=== PATIENT | female | born 1955 | race Caucasian/White ===

== ENCOUNTER → 2016-09-27 | Outpatient (CLI) | payer BC ==
[2016-09-27 14:02] LABS: Anisocytosis Slight; Basophils # (A) 0.1 k/uL (0-0.2); Basophils % (A) 1 %; CH 27.6; Eosinophils # (A) 0.2 k/uL (0-0.7); Eosinophils % (A) 1 %; HCT 41.3 % (34.0-46.0); HDW 2.53; HGB 13.2 gm/dL (11.4-16.0); Luc # (Auto) 0.15; Luc % (Auto) 1; Lymphocytes # (A) 1.5 k/uL (1.0-4.8); Lymphocytes % (A) 11 %; MCH 27.5 pg (25.0-35.0); MCHC 31.9 g/dL (31.0-37.0); MCV 86.3 fL (80.0-100.0); Mean Platelet Volume 7.6; Monocytes # (A) 0.7 k/uL (0-1.0); Monocytes % (A) 5 %; Neutrophils # (A) 10.7 k/uL (1.3-7.7); Neutrophils % (A) 81 %; RBC 4.79 m/uL (3.80-5.40); RDW 16.3 % (11.5-15.5); WBC 13.3 k/uL (3.8-10.6); WBC (Perox) 12.97
== END | disposition home or self-care (01) ==
LOC: LABPAT 13:34
PROVIDERS: ATTEND Obstetrics & Gynecology
DX: Z01.812 Encounter for preprocedural laboratory examination (principal); Z01.810 Encounter for preprocedural cardiovascular examination
CPT/HCPCS: 85025; 93005

== ENCOUNTER → 2016-10-01 | Outpatient (CLI) | payer BC ==
[2016-10-01 14:39] LABS: Potassium 3.6 mmol/L (3.5-5.1)
== END | disposition home or self-care (01) ==
LOC: LABPAT 13:59
PROVIDERS: ATTEND Anesthesiology
DX: Z01.812 Encounter for preprocedural laboratory examination (principal)
CPT/HCPCS: 36415; 80051

== ENCOUNTER 2016-10-04 10:56 | Inpatient (IN) | payer BC ==
[2016-09-28 15:19] VITALS: BMI 32.2
--- NOTE | 2016-10-02 13:26 | P.GSHP ---
History of Present Illness H&P Date: 10/04/16 Chief Complaint: Colovesical fistula Patient is seen in the office as an outpatient with complaints of lower abdominal pain. Patient had complaints over the last several months of lower abdominal pain. Left greater than right. She describes frequent constipation. She underwent a colonoscopy last by Dr. Larkin in September of last year. Patient had a small polyp in the ascending colon. There was left-sided diverticulosis as well as some luminal narrowing of the sigmoid colon. In late July the patient had a CAT scan because of ongoing discomfort. CAT scan showed extensive wall thickening with inflammatory changes involving the sigmoid colon particularly in the mid to distal sigmoid colon. There is a small focus of extraluminal air and some air within the uterus raising the suspicion of colouterine fistula. There was also some involvement of the distal small bowel raising the possibility of a fistulous process there as well. She has some mildly enlarged retroperitoneal adenopathy. Patient denies any pneumaturia. No frequent urinary tract infections. She does admit to being on antibiotics several times for diverticulitis however. She admits that she may have experienced some air passing from the vagina. No feculent drainage. The patient did not have any significant recent gynecologic evaluation. An appointment was made for her to see Dr. Baker. A clinic examination by gynecology revealed a cervical polyp. An ultrasound showed thickening of the endometrium. Patient has experience weight loss with the ongoing symptoms. Past Medical History Past Medical History: Hypertension Additional Past Medical History / Comment(s): HX OF DIVERTICULITIS WITH ABCESS PER PATIENT History of Any Multi-Drug Resistant Organisms: None Reported Past Surgical History: Breast Surgery Additional Past Surgical History / Comment(s): BREAST BIOPSY, TOOTH EXTRACTION, D&C, COLONOSCOPY Past Anesthesia/Blood Transfusion Reactions: No Reported Reaction Past Psychological History: No Psychological Hx Reported Smoking Status: Never smoker Past Alcohol Use History: Occasional Past Drug Use History: None Reported - Past Family History Mother Family Medical History: No Reported History Medications and Allergies Home Medications Medication Instructions Recorded Confirmed Type Atenolol [Tenormin] 50 mg PO DAILY 10/03/15 09/28/16 History Triamterene-Hctz 37.5-25Mg 0.5 cap PO DAILY 10/03/15 09/28/16 History [Dyazide 37.5-25 Capsule] Allergies Allergy/AdvReac Type Severity Reaction Status Date / Time adhesive tape Allergy RED SKIN Verified 09/28/16 15:09 WITH ADHESIVE TAPE Surgical - Exam Physical exam: General: Well-developed, well-nourished HEENT: Normocephalic, sclerae nonicteric Abdomen: Lower quadrant and left-sided abdominal tenderness, no rebound or guarding, no palpable mass Extremities: No edema Neuro: Alert and oriented Assessment and Plan (1) Colouterine fistula Narrative/Plan: I had a long discussion with the patient regarding the clinical findings. We have decided to proceed with sigmoid colectomy with planned re-anastomosis. Potential need for hysterectomy and small bowel resection was also discussed. Potential need for ostomy was also discussed. Dr. Vazquez has agreed to be available during this procedure and also to perform a D&C with removal of the cervical polyp at the beginning of the surgical procedure. The risks of bleeding, infection, ostomy, abscess, hernia, leak, and anesthesia-related, case and were discussed. The potential this represents an atypical malignancy was also discussed. She understands and wishes to proceed. Status: Acute
--- NOTE | 2016-10-03 17:08 | P.HPOB ---
History of Present Illness H&P Date: 10/03/16 Chief Complaint: Abnormal endometrial thickening and cervical polyp. This patient is a pleasant 61-year-old 0 para 0 female who was referred to me by Dr. Rodriguez for questionable colo-uterine fistula. Patient was being evaluated for some left lower quadrant pain and is thought to have probable diverticulitis with questionable fistula or abscess formation. There was some free air noted on her CAT scan in the uterine cavity. Examination in my office showed a 2 cm endocervical polyp. I did order a transvaginal ultrasound and it showed endometrial thickening to 1.5 cm which is abnormal in a postmenopausal patient. There is also some changes noted in the left adnexa, presumably from her diverticulitis. Patient is presenting per Dr. Rodriguez for a partial colectomy and further evaluation. At the time of this surgery, I plan to do a polypectomy and hysteroscopy D&C for evaluation of the uterine abnormality. Review of Systems Constitutional: Reports as per HPI Genitourinary: Reports as per HPI Menstruation: Reports amenorrhea Past Medical History Past Medical History: Hypertension Additional Past Medical History / Comment(s): HX OF DIVERTICULITIS WITH ABCESS PER PATIENT History of Any Multi-Drug Resistant Organisms: None Reported Past Surgical History: Breast Surgery Additional Past Surgical History / Comment(s): BREAST BIOPSY, TOOTH EXTRACTION, D&C, COLONOSCOPY Past Anesthesia/Blood Transfusion Reactions: No Reported Reaction Past Psychological History: No Psychological Hx Reported Smoking Status: Never smoker Past Alcohol Use History: Occasional Past Drug Use History: None Reported - Past Family History Mother Family Medical History: No Reported History Medications and Allergies Home Medications Medication Instructions Recorded Confirmed Type Atenolol [Tenormin] 50 mg PO DAILY 10/03/15 09/28/16 History Triamterene-Hctz 37.5-25Mg 0.5 cap PO DAILY 10/03/15 09/28/16 History [Dyazide 37.5-25 Capsule] Allergies Allergy/AdvReac Type Severity Reaction Status Date / Time adhesive tape Allergy RED SKIN Verified 09/28/16 15:09 WITH ADHESIVE TAPE Exam - OBG Physical Exam Vulva: both: normal Cervix: There is a 2 cm endocervical polyp. Uterus: normal size Results Transvaginal ultrasound as above. Pap smear was normal. Assessment and Plan (1) Endocervical polyp Narrative/Plan: This is a pleasant 61-year-old 0 para 0 female with a 2 cm endocervical polyp and endometrial thickening on ultrasound. Plan is examination under anesthesia with polypectomy, hysteroscopy, and D&C. Patient does understand the surgery and risks including risks of infection, bleeding, possible uterine perforation. Patient also understands there is a possibility that this could be neoplasm and would require further surgeries. Patient also understands there is a chance she could require a hysterectomy at the time of her surgery. All the patient's questions have been answered and a written consent is obtained. Status: Acute (2) Abnormal ultrasound of endometrium Status: Acute
[~2016-10-04 10:56] MED LIST: DEXAMETHASONE SOD PHOSPHATE 10 MG/ML 1 ML VIAL IV ONE; HEPARIN SODIUM,PORCINE 5,000 UNIT/ML 1 ML VIAL SQ ONE; HYDROmorphone 1 MG/ML 1 ML SYRINGE IVP PRN; LACTATED RINGERS 1,000 ML IV SCH; MIDAZOLAM 2 MG/2 ML VIAL IV PRN; ONDANSETRON 4 MG/2 ML VIAL IVP ONE; ceFAZolin 2 GM in SODIUM CHLORIDE 0.9% 100 ML IVPB ONE
[2016-10-04] MEDS ORDERED: MIDAZOLAM 2 MG/2 ML VIAL IVP ONE (12:11)
[2016-10-04] MEDS ORDERED: fentaNYL (PF) 50 MCG/ML 2 ML AMP IV ONE (12:12)
[2016-10-04] MEDS ORDERED: NALOXONE 0.4 MG/ML 1 ML VIAL IV PRN (12:23)
[2016-10-04] MEDS ORDERED: LIDOCAINE 1% INJ 10MG/ML (20 ML MDV) ONE (12:39)
[2016-10-04] MEDS ORDERED: GLYCOPYRROLATE 0.2 MG/ML 2 ML VIAL ONE (12:39)
[2016-10-04] MEDS ORDERED: NEOSTIGMINE 1 MG/ML 10 ML VIAL ONE (12:39)
[2016-10-04] MEDS ORDERED: MIDAZOLAM 2 MG/2 ML VIAL ONE (12:39)
[2016-10-04] MEDS ORDERED: SUCCINYLCHOLINE CHLORIDE 100 MG/5 ML SYR IV ONE (12:39)
[2016-10-04] MEDS ORDERED: fentaNYL (PF) 50 MCG/ML 2 ML AMP ONE (12:39)
[2016-10-04] MEDS ORDERED: PROPOFOL 10 MG/ML 20 ML VIAL IV ONE (12:39)
[2016-10-04] MEDS ORDERED: PHENYLEPHRINE-0.9% NACL SYG 1 MG/10 ML SYRINGE ONE (12:39)
[2016-10-04] MEDS ORDERED: VECURONIUM 10 MG VIAL IV ONE (12:39)
[2016-10-04] MEDS ORDERED: ALVIMOPAN 12 MG CAPSULE PO ONE (12:45)
[2016-10-04] MEDS: metroNIDAZOLE-NS PMX 500 MG in SALINE 1 100ML.BAG IVPB ONE ×2 (12:57→13:00)
--- NOTE | 2016-10-04 13:20 | P.OP ---
Date of Procedure: 10/04/16 Preoperative Diagnosis: Endocervical polyp and abnormal endometrial thickening. Postoperative Diagnosis: Same Procedure(s) Performed: #1: Hysteroscopy. #2: Dilation and curettage. #3: Polypectomy Anesthesia: POLA Surgeon: Javon Vazquez Estimated Blood Loss (ml): 10 Pathology: other (Endocervical polyp/growth and endometrial curettings.) Condition: stable Indications for Procedure: Please see dictated H&P for intimate details of this patient's admission. Brief summary this is a pleasant 61-year-old 0 para 0 female who is referred for evaluation of a possible colo-uterine fistula. Patient had transvaginal ultrasound showed endometrial thickening to 1.5 cm and an examination that showed a 2-3 cm endocervical growth consistent with possible polyp. Patient now presents for hysteroscopy D&C for further evaluation. Patient does understand this procedure and risks including risks of infection, bleeding, possible uterine perforation. All the patient's questions were answered written consent is obtained. Operative Findings: This patient had a 2-3 cm endocervical solid growth consistent with a polyp or submucosal fibroid. Patient also had multiple small endometrial polypoid growths. Description of Procedure: This patient is taken to the operating room where she is laid in the supine position. She subsequent undergoes general tracheal anesthesia without incident. Adequate local anesthesia was placed in dorsal lithotomy position in the [facility]. She has a vaginal perineal prep and drape. Examination under anesthesia shows a small uterus. There is a 2-3 cm solid growth protruding from the cervix. I first placed a weighted speculum posterior vagina. Then place a South catheter to straight drain. An Allis clamp was used to grab the anterior lip of the cervix. I then grabbed the large endocervical growth with a ring forceps and twisting action remove the entire growths. This is sent separately to pathology. Then dilate the cervix gently more to allow the hysteroscope into the uterine cavity. Using saline solution hysteroscopy is then performed. There are multiple large polyps in the endometrium. It is somewhat difficult visualization but there does not appear to be any communication between the colon and the uterus as visualized. The hysteroscope was then removed. Cervix is dilated more to allow a polyp forceps into the uterine cavity. Multiple passes I may remove multiple polyps. These are sent off to pathology as well a gentle but vigorous curettage of all 4 quadrants is then done for more tissue. With this done this part of the procedure is terminated. The Allis clamp and weighted speculums removed. All counts are correct 3. There are no complications. I discussed my findings with Dr. Rodriguez to proceed with his part of the procedure and if indicated will call me for any further surgery.
[2016-10-04] MEDS ORDERED: LACTATED RINGERS 1,000 ML IV ONE ×3 (13:27→15:00)
[2016-10-04] MEDS: BUPIVACAINE (PF) 0.5% 31.3 ML, HYDROmorphone 5 MG in SODIUM CHLORIDE 0.9% 216 ML EPIDURAL PRN ×2 (17:12→18:10)
[2016-10-04] MEDS ORDERED: METOCLOPRAMIDE 5 MG/ML 2 ML VIAL IVP PRN (17:14)
--- NOTE | 2016-10-04 17:23 | P.OP ---
Date of Procedure: 10/04/16 Procedure(s) Performed: PREOPERATIVE DIAGNOSIS: Diverticulitis POSTOPERATIVE DIAGNOSIS: Same PROCEDURE: Sigmoid colectomy, mobilization splenic flexure, small bowel resection, incidental appendectomy SURGEON: Jennifer EBL: See anesthesia record ANESTHESIA: General COMPLICATIONS: None OPERATIVE PROCEDURE: Patient place in the operative table in the supine position. The patient was placed under general anesthesia. The patient was then placed in lithotomy. The patient first underwent D&C with removal cervical polyp by Dr. Baker. Following that the abdomen was prepped and draped in usual sterile fashion. A vertical incision was made encompassing the umbilical hernia that was present. The fascia was divided as well. The Bookwalter retractor was utilized. The sigmoid colon was intensely inflamed. From the distal descending colon down to the distal sigmoid colon the colon was extremely inflamed. Careful blunt dissection mobilized this. The mesentery was divided using a combination of the LigaSure device and 0 silk ties. The bowel was divided proximally using a linear 75 stapler and distally just above the peritoneal reflection with a contour stapler. There was a loop of terminal ileum that was adherent to the inflamed region. As I inspect this closer a small pinhole was identified it was draining bile and a small bowel resection took place. I removed first a small portion of bowel and then another few centimeters proximal to that. There was an enlarged lymph node present in the mesentery of that loop of small bowel. A [id number] anastomosis took place by firing a linear 75 stapler along the antimesenteric border after removing the antimesenteric portion of the staple line. The bowel was then closed using a TX 60 device. The TX 60 stapler line was imbricated using 3-0 GI GI silk sutures. In the mesentery was closed using 3-0 GI silk sutures as well. The appendix was distended likely from the chronic constipation but it was decided to remove this using a linear 75 stapler. The mesentery was divided using a LigaSure device. The colon was then once again inspected. There was an area of induration proximal to our staple line by about 5 cm on additional segment of descending colon was removed. The splenic flexure was fully mobilized using a combination of the LigaSure device blunt dissection and electrocautery. The bowel then was able to reach into the pelvis without difficulty. The viability of the colon in this area was good. The staple line was removed after it was cleared of surrounding fat. The pursestring stapler was utilized. The 29 EEA was chosen. The anvil was advanced into the lumen of the bowel and the pursestring was tied down. The stapler was then inserted into the anus and brought up to the staple line. The obturator was brought out anterior to the staple line. The 2 portions of the stapler were connected to one another and subsequently tightened and fired. The bowel was clamped proximal to the anastomosis. The rigid sigmoidoscope was utilized to fill the anastomotic site nicely with air. There was saline in the pelvis at this time. No evidence of leak was seen. The abdomen was irrigated with saline. The liver, stomach, visualized colon, and small bowel appeared normal. The midline fascia was then reapproximated using 2 separate double-stranded #1 PDS sutures. The subcutaneous tissues were closed using 3-0 Vicryl sutures. A drain was placed just anterior to the fascia exiting through the skin in the right lower quadrant. This was sutured to the skin using a 3-0 nylon stitch. The skin was then closed using fabi. Sterile dressings were then applied. DISPOSITION: Stable to recovery room
[2016-10-04] MEDS: ONDANSETRON 4 MG/2 ML VIAL IVP PRN (19:21)
[2016-10-04] MEDS: D5-0.45% NACL WITH KCL 20MEQ/L 1,000 ML IV SCH (19:25)
[2016-10-04] MEDS: ALVIMOPAN 12 MG CAPSULE PO SCH (19:26)
[2016-10-04] MEDS: FAMOTIDINE 20 MG/2 ML VIAL IV SCH (19:27)
[2016-10-05] MEDS: HEPARIN SODIUM,PORCINE 5,000 UNIT/ML 1 ML VIAL SQ SCH ×3 (00:47→17:55)
[2016-10-05] MEDS: D5-0.45% NACL WITH KCL 20MEQ/L 1,000 ML IV SCH ×3 (02:20→17:53)
[2016-10-05 07:29] LABS: Basophils % (A) 0 %; CH 27.6; CHCM 31.6; Eosinophils % (A) 0 %; HCT 33.2 % (34.0-46.0); HDW 2.63; HGB 10.4 gm/dL (11.4-16.0); Hypochromasia Slight; Luc # (Auto) 0.11; Luc % (Auto) 1; Lymphocytes # (A) 0.7 k/uL (1.0-4.8); Lymphocytes % (A) 5 %; MCH 27.5 pg (25.0-35.0); MCHC 31.4 g/dL (31.0-37.0); MCV 87.4 fL (80.0-100.0); Mean Platelet Volume 6.8; Monocytes # (A) 0.7 k/uL (0-1.0); Monocytes % (A) 5 %; Neutrophils # (A) 11.7 k/uL (1.3-7.7); Neutrophils % (A) 88 %; RDW 15.7 % (11.5-15.5); WBC 13.2 k/uL (3.8-10.6); WBC (Perox) 14.17
[2016-10-05 07:57] LABS: Anion Gap 10 mmol/L; Blood Urea Nitrogen 12 mg/dL (7-17); Calcium 8.8 mg/dL (8.4-10.2); Carbon Dioxide 29 mmol/L (22-30); Chloride 99 mmol/L (98-107); Glucose 191 mg/dL (74-99); Non-African American GFR(MDRD) >60 (>60 ml/min/1.73 sqM); Sodium 138 mmol/L (137-145)
[2016-10-05] MEDS: ONDANSETRON 4 MG/2 ML VIAL IVP PRN (08:23)
[2016-10-05] MEDS: FAMOTIDINE 20 MG/2 ML VIAL IV SCH ×2 (08:24→21:04)
[2016-10-05] MEDS: ALVIMOPAN 12 MG CAPSULE PO SCH ×2 (08:24→21:04)
--- NOTE | 2016-10-05 09:11 | P.PN ---
Progress Note - Text Patient is postoperative day# 1 status post laparotomy, epidural catheter placed for postoperative analgesia, patient currently on epidural infusion of bupivacaine 0.625%/Dilaudid 20 mics/ml, at 3 ml/hours and pain control is okay. Patient complained of dizziness, spinning of the head last night and her blood pressure was low in the systolics of 90s. Epidural rate was decreased from 8 mL per hour to 3 mL per hour. Now the blood pressure is better. Patient reports nausea and stomach upset as she does already feels when she takes pills on an empty stomach. Advised to start on Protonix Titrated epidural rate from 2-10 mL an hour depending on the blood pressure and pain control. We will follow.
[2016-10-05] MEDS: PANTOPRAZOLE 40 MG/10 ML VIAL IVP SCH (11:45)
--- NOTE | 2016-10-05 16:09 | P.PN ---
Progress Note - Text The patient is day 1 post the sigmoid and small bowel resection for complicated diverticular disease. She is coming along fairly well. Some nausea she thinks may be related to the pain medication. Is taking small amounts of liquids by mouth. The patient is awake alert afebrile in no distress... Abdomen is soft the usual postoperative tenderness mostly in the epigastric area. No guarding or rebound. PVCs 13,200. Hemoglobin 10.4. Potassium is normal. Impression stable post operative course. Recommendation continue on by mouth fluids. Probably DC South catheter tomorrow. Encouraged to ambulate.
[2016-10-06] MEDS: BUPIVACAINE (PF) 0.5% 31.3 ML, HYDROmorphone 5 MG in SODIUM CHLORIDE 0.9% 216 ML EPIDURAL PRN (00:03)
[2016-10-06] MEDS: HEPARIN SODIUM,PORCINE 5,000 UNIT/ML 1 ML VIAL SQ SCH ×4 (00:03→23:46)
[2016-10-06] MEDS: D5-0.45% NACL WITH KCL 20MEQ/L 1,000 ML IV SCH ×4 (05:28→23:46)
[2016-10-06 07:22] LABS: Basophils % (A) 0 %; CH 27.4; CHCM 31.1; Eosinophils % (A) 0 %; HCT 29.7 % (34.0-46.0); HDW 2.68; HGB 9.4 gm/dL (11.4-16.0); Hypochromasia Slight; Luc % (Auto) 1; Lymphocytes # (A) 1.3 k/uL (1.0-4.8); Lymphocytes % (A) 14 %; MCH 27.9 pg (25.0-35.0); MCHC 31.7 g/dL (31.0-37.0); MCV 88.1 fL (80.0-100.0); Monocytes # (A) 0.4 k/uL (0-1.0); Monocytes % (A) 4 %; Neutrophils % (A) 81 %; RBC 3.37 m/uL (3.80-5.40); RDW 15.7 % (11.5-15.5); WBC 9.9 k/uL (3.8-10.6); WBC (Perox) 10.71
[2016-10-06 07:33] LABS: Anion Gap 10 mmol/L; Blood Urea Nitrogen 9 mg/dL (7-17); Calcium 9.1 mg/dL (8.4-10.2); Carbon Dioxide 27 mmol/L (22-30); Chloride 100 mmol/L (98-107); Glucose 105 mg/dL (74-99); Non-African American GFR(MDRD) >60 (>60 ml/min/1.73 sqM); Potassium 3.6 mmol/L (3.5-5.1); Sodium 137 mmol/L (137-145)
--- NOTE | 2016-10-06 08:01 | CONS ---
DATE OF CONSULTATION: CHIEF COMPLAINT: Consultation regarding medical management. HISTORY OF PRESENT ILLNESS: This is a 61-year-old female who was admitted to the hospital and undergone surgery. Patient's symptoms started end of May when she started having some abdominal pain. The patient had evidence suggestive of diverticulitis. She started complaining of some abdominal pains and difficulty in having bowel movements. CAT scan had suggested some suggestion of a stricture. The patient has had a colonoscopy previous about a year or so ago. In view of this, the patient was referred to Gastroenterology. The patient treated, came for diverticulitis. Subsequently CAT scan done revealed the patient had suggestion of significant diverticulitis ( ) colonic diverticular abscess. Possibility of fistula into the uterus and possible fistula in the ileum. The patient after at least about a month of antibiotics, patient's condition had stabilized and subsequently underwent surgical evaluation and surgery. The patient had no evidence to suggest uterine fistula but did have an terminal ileum fistula. So she had a partial small bowel obstruction resection and descending colon, sigmoid area resection. The patient is actually doing fairly well. She had multiple polyps in the uterus. Pathology pending. Past medical history is significant for hypertension otherwise, no history of any lung disease, liver disease, kidney disease, ulcers, TB, hepatitis. No history of rheumatic fever, myocardial infarction, CVA. PAST SURGICAL HISTORY: Significant for breast biopsy. PERSONAL HISTORY: Nonsmoker. Alcohol none. Medications at present include: 1. Tenormin 50 mg daily. 2. Maxzide 25 1/2 tablets daily. SOCIAL HISTORY: Patient is single, lives alone. FAMILY MEDICAL HISTORY: Mother at about 89 years of age. She had a history of hypertensive cardiovascular disease. The patient has a brother who recently had been sudden . A brother who had a cardiac arrest and fully revived. He has infiltrative cardiomyopathy. The patient's herself is doing otherwise patient's condition ( ). The patient has no children. REVIEW OF SYSTEMS: NEURO: Denied any headaches, dizziness. No double vision, blurred vision. No symptoms of TIA, syncope, seizures. PSYCH: No anxiety. CARDIAC: No chest pain, angina, palpitations. RESPIRATORY: No shortness of breath, cough, hemoptysis. GI: No nausea, vomiting, abdominal pain, diarrhea. : No symptoms of dysuria, hematuria, urgency, frequency. She has significant pain in late May/June. EXTREMITIES: No edema. CONSTITUTIONAL: No fever or chills. Has lost about 40 pounds of weight. PHYSICAL EXAMINATION: Pleasant female in no distress. Temperature 96.9, pulse 61, respirations 16, blood pressure 104/68, pulse ox 94% on room air. HEENT: Normocephalic. NECK: No JVD. CHEST: Clear to auscultation. CARDIAC: Normal S1, S2 with no gallops, murmurs. ABDOMEN: Tender. Bowel sounds are absent. EXTREMITIES: No edema. No tenderness. NEUROLOGIC: Awake, alert, oriented with well-coordinated. Laboratory assessment: Hemoglobin 10.4, white count 13.2, potassium, electrolytes, BUN and creatinine are normal. Glucose 191. ASSESSMENT: 1. History of hypertension. 2. Colonic diverticulitis with diverticular abscess and fistula. 3. Elevated blood sugar post surgery with no previous history of diabetes mellitus. 4. Stress hyperglycemia. PLAN: Continue present medical regimen. The patient will be covered with insulin as needed. Patient's condition was discussed with the patient. Prognosis guarded.
[2016-10-06 08:21] LABS: Glucose,Whole Blood 123 mg/dL (75-99)
[2016-10-06] MEDS: INSULIN LISPRO (humaLOG) 300 UNIT/3 ML VIAL SQ SCH ×4 (08:41→20:24)
[2016-10-06] MEDS: PANTOPRAZOLE 40 MG/10 ML VIAL IVP SCH (09:01)
[2016-10-06] MEDS: FAMOTIDINE 20 MG/2 ML VIAL IV SCH (09:01)
[2016-10-06] MEDS: ALVIMOPAN 12 MG CAPSULE PO SCH ×2 (09:01→20:24)
[2016-10-06] MEDS ORDERED: MAG HYDROX/AL HYDROX/SIMETH 30 ML CUP PO PRN (09:37)
--- NOTE | 2016-10-06 09:37 | P.PN ---
Progress Note - Text The patient is stable. Still quite nauseous. Taking in small amounts of liquids. Does not want her diet to be increase at this time. Usual amount of discomfort the especially incisional. No flatus yet. On examination patient is afebrile. Vitals are stable. Abdomen shows usual postoperative tenderness. Incision looks good. Wbc's normal. Impression stable postop the sigmoid resection. Plan see South. I'll keep him on by mouth fluids for now. Encouraged ambulation.
[2016-10-06 11:35] LABS: Glucose,Whole Blood 135 mg/dL (75-99)
--- NOTE | 2016-10-06 16:52 | PN ---
CHIEF COMPLAINT: This is a 62-year-old who was admitted to the hospital and underwent surgery. The patient has underlying history of diverticulosis with diverticular abscess and fistula to small-bowel. Post surgery, patient is doing well. She has a previous history of hypertension. REVIEW OF SYSTEMS: NEURO: Denies any headaches, dizziness. PSYCH: No anxiety. CARDIAC: No chest pain, angina, palpitation. RESPIRATORY: Denies shortness of breath, cough. GI: No nausea, vomiting. Abdominal pain is minimal. No bowel movements. She feels she has some gurgling. PHYSICAL EXAMINATION: Pleasant female in no distress. Vital reveal temperature 97, pulse 88, respirations 16, blood pressure 112/57, pulse ox 93% on 2L. HEENT: Normocephalic. NECK: No JVD. Chest is clear to auscultation. CARDIAC: Normal S1, S2 with no gallops. ABDOMEN: Tender. Bowel sounds, not appreciated. Extremities reveal no edema. No tenderness. NEUROLOGIC: Awake, alert, oriented with well-coordinated movements. LABORATORY ASSESSMENT: Hemoglobin 9.4, white count 9.9. Electrolytes are normal. Glucose 105. ASSESSMENT: 1. Anemia secondary to acute blood loss. 2. History of hypertension on medical therapy. 3. Diverticular disease, post surgery. PLAN: The patient is stable. Continue present regimen. The patient's condition discussed with the patient. Prognosis guarded.
--- NOTE | 2016-10-06 16:55 | P.PN ---
Progress Note - Text 10/06 0991 61-year-old female status post sigmoid colectomy by Dr. Rodriguez. Patient seen this evening, evaluated for pain control, VAS of 2, solution running at 3 mL an hour. Patient has no motor or sensory deficit, able to ambulate well. Plan to continue epidural infusion and DC'd the epidural in a.m..
[2016-10-06 17:06] LABS: Glucose,Whole Blood 129 mg/dL (75-99)
[2016-10-06 20:25] LABS: Glucose,Whole Blood 112 mg/dL (75-99)
[2016-10-07] MEDS: BUPIVACAINE (PF) 0.5% 31.3 ML, HYDROmorphone 5 MG in SODIUM CHLORIDE 0.9% 216 ML EPIDURAL PRN (05:52)
[2016-10-07 07:47] LABS: Anion Gap 8 mmol/L; Blood Urea Nitrogen 3 mg/dL (7-17); Calcium 8.9 mg/dL (8.4-10.2); Carbon Dioxide 29 mmol/L (22-30); Chloride 101 mmol/L (98-107); Glucose 100 mg/dL (74-99); Non-African American GFR(MDRD) >60 (>60 ml/min/1.73 sqM); Potassium 3.6 mmol/L (3.5-5.1); Sodium 138 mmol/L (137-145)
[2016-10-07 08:09] LABS: Basophils % (A) 1 %; CH 27.5; CHCM 31.7; Eosinophils # (A) 0.1 k/uL (0-0.7); Eosinophils % (A) 2 %; HDW 2.75; HGB 9.9 gm/dL (11.4-16.0); Hypochromasia Slight; Luc # (Auto) 0.09; Luc % (Auto) 1; Lymphocytes # (A) 1.1 k/uL (1.0-4.8); Lymphocytes % (A) 14 %; MCHC 36.8 g/dL (31.0-37.0); MCV 86.9 fL (80.0-100.0); Mean Platelet Volume 7.3; Monocytes # (A) 0.7 k/uL (0-1.0); Monocytes % (A) 9 %; Neutrophils # (A) 5.8 k/uL (1.3-7.7); Neutrophils % (A) 75 %; RBC 3.11 m/uL (3.80-5.40); RDW 15.7 % (11.5-15.5); WBC 7.8 k/uL (3.8-10.6); WBC (Perox) 7.63
[2016-10-07] MEDS: HEPARIN SODIUM,PORCINE 5,000 UNIT/ML 1 ML VIAL SQ SCH ×2 (08:27→15:22)
[2016-10-07] MEDS: INSULIN LISPRO (humaLOG) 300 UNIT/3 ML VIAL SQ SCH ×4 (08:27→20:51)
[2016-10-07] MEDS: ALVIMOPAN 12 MG CAPSULE PO SCH ×2 (08:27→20:46)
[2016-10-07] MEDS: PANTOPRAZOLE 40 MG/10 ML VIAL IVP SCH (08:27)
[2016-10-07] MEDS ORDERED: HYDROmorphone 1 MG/ML 1 ML SYRINGE IVP PRN (09:29)
[2016-10-07 09:46] LABS: Polychromasia Present
[2016-10-07 09:47] LABS: Large Platelets Present; Manual Review Performed; Toxic Vacuolation Present
--- NOTE | 2016-10-07 09:54 | P.PN ---
Progress Note - Text The patient remains fairly stable. She is afebrile. Vitals are good. Tolerating by mouth fluids small amounts. No flatus or bowel movement yet. She is voiding since apparently catheter was yesterday. Temperature is normal. Abdomen is soft. Incision looks fine. DOLORES drain is minimal about 25 MLS in the last 12 hours. Improving postoperative course. Epidural to be removed today. We'll advance her diet to full liquids. DC DOLORES drain tomorrow.
[2016-10-07] MEDS: HYDROcodone/APAP 7.5-325MG 1 EACH TAB PO PRN ×2 (15:19→20:47)
[2016-10-07] MEDS: D5-0.45% NACL WITH KCL 20MEQ/L 1,000 ML IV SCH ×2 (15:20→20:52)
[2016-10-07] MEDS: ONDANSETRON 4 MG/2 ML VIAL IVP PRN (20:46)
--- NOTE | 2016-10-07 20:47 | P.PN ---
Progress Note - Text 10/07 103 61-year-old female that is post sigmoid colectomy by Dr. Rodriguez. Patient seen and evaluated this morning, we'll solution running at 3 mL an hour with a resting VAS of 3. No motor or sensory deficit, patient ambulating well. Epidural DC'd nurse informed
[2016-10-07 20:52] LABS: Glucose,Whole Blood 120 mg/dL (75-99)
[2016-10-08] MEDS: HEPARIN SODIUM,PORCINE 5,000 UNIT/ML 1 ML VIAL SQ SCH ×4 (00:59→23:24)
[2016-10-08] MEDS: D5-0.45% NACL WITH KCL 20MEQ/L 1,000 ML IV SCH ×4 (00:59→21:38)
[2016-10-08] MEDS: HYDROcodone/APAP 7.5-325MG 1 EACH TAB PO PRN ×4 (04:26→21:38)
[2016-10-08] MEDS: ONDANSETRON 4 MG/2 ML VIAL IVP PRN (04:26)
[2016-10-08 07:43] LABS: Basophils % (A) 0 %; CH 27.6; CHCM 31.8; Eosinophils # (A) 0.1 k/uL (0-0.7); Eosinophils % (A) 1 %; HCT 32.6 % (34.0-46.0); HDW 2.74; HGB 10.4 gm/dL (11.4-16.0); Hypochromasia Slight; Luc # (Auto) 0.06; Luc % (Auto) 1; Lymphocytes # (A) 0.7 k/uL (1.0-4.8); Lymphocytes % (A) 10 %; MCH 27.8 pg (25.0-35.0); MCHC 31.9 g/dL (31.0-37.0); MCV 86.9 fL (80.0-100.0); Mean Platelet Volume 6.7; Monocytes # (A) 0.3 k/uL (0-1.0); Monocytes % (A) 5 %; Neutrophils # (A) 5.9 k/uL (1.3-7.7); Neutrophils % (A) 83 %; RBC 3.75 m/uL (3.80-5.40); RDW 15.6 % (11.5-15.5); WBC 7.1 k/uL (3.8-10.6); WBC (Perox) 7.59
[2016-10-08 07:52] LABS: Anion Gap 8 mmol/L; Blood Urea Nitrogen <2 mg/dL (7-17); Calcium 9.1 mg/dL (8.4-10.2); Carbon Dioxide 30 mmol/L (22-30); Chloride 101 mmol/L (98-107); Glucose 113 mg/dL (74-99); Non-African American GFR(MDRD) >60 (>60 ml/min/1.73 sqM); Potassium 3.6 mmol/L (3.5-5.1); Sodium 139 mmol/L (137-145)
[2016-10-08] MEDS: PANTOPRAZOLE 40 MG TABLET PO SCH (08:28)
[2016-10-08] MEDS: ALVIMOPAN 12 MG CAPSULE PO SCH ×2 (08:28→20:22)
[2016-10-08] MEDS: INSULIN LISPRO (humaLOG) 300 UNIT/3 ML VIAL SQ SCH ×4 (08:29→20:22)
--- NOTE | 2016-10-08 16:00 | P.PN ---
Progress Note - Text The patient progressively improved. No fever. Tolerating a full liquid diet. Passing flatus. The drain is minimal 20 mL's in 24 hours per serosanguineous. On examination the patient is awake alert afebrile. Vitals are good. Abdomen is soft. Incision looks good. An usual postoperative tenderness. Progressive improvement. Recommendation. DC the DOLORES drain. We will advance her diet.
[2016-10-08 20:23] LABS: Glucose,Whole Blood 114 mg/dL (75-99)
[2016-10-09] MEDS: HYDROcodone/APAP 7.5-325MG 1 EACH TAB PO PRN ×4 (04:31→23:09)
[2016-10-09] MEDS: D5-0.45% NACL WITH KCL 20MEQ/L 1,000 ML IV SCH ×3 (04:35→23:09)
[2016-10-09 07:11] LABS: Glucose,Whole Blood 103 mg/dL (75-99)
[2016-10-09] MEDS: INSULIN LISPRO (humaLOG) 300 UNIT/3 ML VIAL SQ SCH ×4 (08:08→20:32)
[2016-10-09] MEDS: HEPARIN SODIUM,PORCINE 5,000 UNIT/ML 1 ML VIAL SQ SCH ×3 (08:08→23:09)
[2016-10-09] MEDS: PANTOPRAZOLE 40 MG TABLET PO SCH (08:08)
--- NOTE | 2016-10-09 11:00 | P.PN ---
Progress Note - Text The patient is afebrile. The of tolerating small amounts of soft diet. Did have a bowel movement the middle of night. Some flatus. Examination she is afebrile. Vitals are stable. Abdomen is soft. Usual postoperative tenderness. Location. She is voiding well. Doing well postop. Should be able to go home in the next day or so. May shower.
[2016-10-09 12:02] LABS: Glucose,Whole Blood 115 mg/dL (75-99)
[2016-10-09] MEDS: ALVIMOPAN 12 MG CAPSULE PO SCH ×2 (12:49→20:33)
[2016-10-09 16:53] LABS: Glucose,Whole Blood 102 mg/dL (75-99)
[2016-10-09 20:34] LABS: Glucose,Whole Blood 108 mg/dL (75-99)
[2016-10-10] MEDS: HYDROcodone/APAP 7.5-325MG 1 EACH TAB PO PRN ×4 (04:09→21:37)
[2016-10-10] MEDS: ONDANSETRON 4 MG/2 ML VIAL IVP PRN (04:22)
[2016-10-10 07:26] LABS: Glucose,Whole Blood 116 mg/dL (75-99)
[2016-10-10] MEDS: INSULIN LISPRO (humaLOG) 300 UNIT/3 ML VIAL SQ SCH ×3 (08:38→17:29)
[2016-10-10] MEDS: HEPARIN SODIUM,PORCINE 5,000 UNIT/ML 1 ML VIAL SQ SCH ×3 (08:50→23:15)
[2016-10-10] MEDS: ALVIMOPAN 12 MG CAPSULE PO SCH ×2 (08:50→20:13)
[2016-10-10] MEDS: D5-0.45% NACL WITH KCL 20MEQ/L 1,000 ML IV SCH ×2 (09:17→13:36)
[2016-10-10] MEDS: PANTOPRAZOLE 40 MG TABLET PO SCH (09:17)
[2016-10-10 11:48] LABS: Glucose,Whole Blood 124 mg/dL (75-99)
--- NOTE | 2016-10-10 13:33 | P.PN ---
Subjective Principal diagnosis: Diverticulitis Patient doing well today. She has had a fairly uneventful recovery after her recent one colectomy. She is passing flatus and had small bowel months. Still with some discomfort. Appetite remains low. She is ambulating. She is afebrile. Objective - Vital Signs Vital signs: Vital Signs Temp 98 F 10/10/16 07:00 Pulse 97 10/10/16 07:00 Resp 18 10/10/16 07:00 BP 151/93 10/10/16 07:00 Pulse Ox 94 L 10/10/16 07:00 Intake & Output 10/09/16 10/10/16 10/10/16 18:59 06:59 18:59 Intake Total 240 240 Output Total 804 Balance -564 240 Weight 82.554 kg Intake: Oral 240 240 Output: Urine 800 Stool 4 Other: Voiding Method Toilet Toilet # Voids 2 1 # Bowel Movements 1 - Exam Abdomen: Soft, mild incisional tenderness, incision clean and dry - Labs CBC & Chem 7: 10/08/16 07:13 10/08/16 07:11 Labs: Abnormal Lab Results - Last 24 Hours (Table) 10/09/16 10/09/16 10/10/16 Range/Units 16:44 20:32 07:17 POC Glucose (mg/dL) 102 H 108 H 116 H (75-99) mg/dL 10/10/16 Range/Units 11:30 POC Glucose (mg/dL) 124 H (75-99) mg/dL Assessment and Plan (1) Colouterine fistula Narrative/Plan: Continue soft diet. Anticipate discharge tomorrow if the patient's appetite is improved. Status: Acute
[2016-10-10 19:41] VITALS: RESP 16
[2016-10-11] MEDS: HYDROcodone/APAP 7.5-325MG 1 EACH TAB PO PRN ×2 (04:51→13:00)
[2016-10-11 07:32] VITALS: BP 166/87; PULSE 100; TEMP 97.6
[2016-10-11] MEDS: HEPARIN SODIUM,PORCINE 5,000 UNIT/ML 1 ML VIAL SQ SCH (07:37)
[2016-10-11] MEDS: PANTOPRAZOLE 40 MG TABLET PO SCH (07:37)
[2016-10-11] MEDS: ALVIMOPAN 12 MG CAPSULE PO SCH (07:38)
--- NOTE | 2016-10-11 19:04 | P.DS ---
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 Mobilization of splenic flexure took place. This was being performed for chronic diverticulitis and suspected fistula. The patient postoperatively was initially kept nothing by mouth but gradually her diet was advanced. Her ileus improved gradually. She was given Entereg during this hospitalization. Medicine was also asked to see this patient postoperatively. The patient's bowel function gradually improved over the last several days. Today she is tolerating her diet without difficulty. She is having loose but more formed stools. No nausea or vomiting. Her incision is clean and dry with no drainage. The patient is being discharged today with plans for outpatient follow-up in 1 week. Status: Acute Plan - Discharge Summary New Discharge Prescriptions: Hydrocodone/Acetaminophen [Varna 5-325] 1 - 2 each PO Q4HR PRN #30 tab PRN Reason: pain Discharge Medication List Atenolol [Tenormin] 50 mg PO DAILY 10/03/15 [History] Triamterene-Hctz 37.5-25Mg [Maxzide 37.5-25] 0.5 tab PO DAILY 10/04/16 [History] Hydrocodone/Acetaminophen [Varna 5-325] 1 - 2 each PO Q4HR PRN #30 tab 10/10/16 [Rx] Follow up Appointment(s)/Referral(s): Ronald Rodriguez MD [Medical Doctor] - 10/17/16 3:40 pm Fahad Talavera MD [Primary Care Provider] - 1 Week (Office closed. Patient to call and schedule follow up appointment.) Activity/Diet/Wound Care/Special Instructions: [facility] [phone] Discharge Disposition: HOME WITH HOME HEALTH SERVICES
== END 2016-10-11 13:56 | disposition home health service (06) | DRG 330 ==
LOC: 2ORMAIN 10:56 → 3SUR 16:59
PROVIDERS: ADMIT Surgery; ATTEND Surgery
PROC: 0DTJ0ZZ Resection of Appendix, Open Approach (ICD-10-PCS; 2016-10-04)
PROC: 0DB80ZX Excision of Small Intestine, Open Approach, Diagnostic (ICD-10-PCS; 2016-10-04)
PROC: 0UDB8ZX Extraction of Endometrium, Via Natural or Artificial Opening Endoscopic, Diagnostic (ICD-10-PCS; 2016-10-04)
PROC: 0UBC8ZX Excision of Cervix, Via Natural or Artificial Opening Endoscopic, Diagnostic (ICD-10-PCS; 2016-10-04)
PROC: 0DBM0ZZ Excision of Descending Colon, Open Approach (ICD-10-PCS; principal; 2016-10-04 12:30)
PROC: 0DBN0ZZ Excision of Sigmoid Colon, Open Approach (ICD-10-PCS; 2016-10-04 12:30)
DX: K57.32 Diverticulitis of large intestine without perforation or abscess without bleeding (principal); N82.4 Other female intestinal-genital tract fistulae; I11.9 Hypertensive heart disease without heart failure; K56.7 Ileus, unspecified; D62 Acute posthemorrhagic anemia; N84.1 Polyp of cervix uteri; R73.9 Hyperglycemia, unspecified; K57.30 Diverticulosis of large intestine without perforation or abscess without bleeding; K59.09 Other constipation; T40.2X5A Adverse effect of other opioids, initial encounter; R85.89 Other abnormal findings in specimens from digestive organs and abdominal cavity; R59.0 Localized enlarged lymph nodes; K42.9 Umbilical hernia without obstruction or gangrene; N91.2 Amenorrhea, unspecified; R42 Dizziness and giddiness; R11.0 Nausea; R63.4 Abnormal weight loss; Z86.19 Personal history of other infectious and parasitic diseases; Z91.048 Other nonmedicinal substance allergy status; Z79.899 Other long term (current) drug therapy; Z82.49 Family history of ischemic heart disease and other diseases of the circulatory system; Z82.41 Family history of sudden cardiac death; Z86.010 Personal history of colon polyps
CPT/HCPCS: 36415; 80048; 80051; 84132; 85025; 86850; 86900; 86901; 88305; 88307; 88342; 93005

== ENCOUNTER 2017-04-03 08:02 | Day surgery (SDC) | payer BC ==
[2017-04-01 14:41] VITALS: BMI 32.5
[~2017-04-03 08:02] MED LIST changes: -DEXAMETHASONE SOD PHOSPHATE 10 MG/ML 1 ML VIAL IV ONE; -HEPARIN SODIUM,PORCINE 5,000 UNIT/ML 1 ML VIAL SQ ONE; -HYDROmorphone 1 MG/ML 1 ML SYRINGE IVP PRN; +LIDOCAINE 1% 20 ML VIAL (10MG/ML) FOR IV START INTRADERMA PRN; -MIDAZOLAM 2 MG/2 ML VIAL IV PRN; -ONDANSETRON 4 MG/2 ML VIAL IVP ONE; -ceFAZolin 2 GM in SODIUM CHLORIDE 0.9% 100 ML IVPB ONE
[2017-04-03] MEDS ORDERED: LACTATED RINGERS 1,000 ML IV ONE (08:05)
[2017-04-03 08:17] VITALS: TEMP 97.3
[2017-04-03] MEDS ORDERED: LIDOCAINE 1% INJ 10MG/ML (20 ML MDV) ONE (08:25)
[2017-04-03] MEDS ORDERED: PROPOFOL 10 MG/ML 20 ML VIAL IV ONE (08:25)
--- NOTE | 2017-04-03 08:30 | P.GSHP ---
History of Present Illness H&P Date: 04/03/17 Chief Complaint: Change in bowel habits Patient here today for colonoscopy. She has had frequent diarrhea. Some perianal discomfort and was found recently to have a colon cancer as well. His donor service right previous sigmoid colectomy for colovesical fistula. She does have a personal history of colon polyps. Past Medical History Past Medical History: Hypertension Additional Past Medical History / Comment(s): HX OF DIVERTICULITIS WITH ABCESS PER PATIENT History of Any Multi-Drug Resistant Organisms: None Reported Past Surgical History: Bowel Resection, Breast Surgery Additional Past Surgical History / Comment(s): BREAST BIOPSY, TOOTH EXTRACTION, D&C Past Anesthesia/Blood Transfusion Reactions: No Reported Reaction Smoking Status: Never smoker - Past Family History Mother Family Medical History: No Reported History Medications and Allergies Home Medications Medication Instructions Recorded Confirmed Type Atenolol [Tenormin] 50 mg PO DAILY 10/03/15 04/03/17 History Triamterene-Hctz 37.5-25Mg 0.5 tab PO Q48H 10/04/16 04/03/17 History [Maxzide 37.5-25] L.acidoph,Paracasei, B.lactis 1 each PO DAILY 04/01/17 04/01/17 History [Probiotic] Multivitamins, Thera [Multivitamin 1 tab PO DAILY 04/01/17 04/01/17 History (formulary)] Allergies Allergy/AdvReac Type Severity Reaction Status Date / Time adhesive tape Allergy RED SKIN Verified 04/03/17 08:17 WITH ADHESIVE TAPE Surgical - Exam Vital Signs Temp Pulse Resp BP Pulse Ox 97.3 F L 67 16 138/85 97 04/03/17 08:16 04/03/17 08:16 04/03/17 08:16 04/03/17 08:16 04/03/17 08:16 Physical exam: General: Well-developed, well-nourished HEENT: Normocephalic, sclerae nonicteric Abdomen: Nontender, nondistended Extremities: No edema Neuro: Alert and oriented Assessment and Plan (1) Change in bowel habits Narrative/Plan: Will proceed with colonoscopy at this time. Status: Acute
--- NOTE | 2017-04-03 08:51 | P.PCN ---
Date of Procedure: 04/03/17 Preoperative Diagnosis: Postoperative Diagnosis: Procedure(s) Performed: PREOPERATIVE DIAGNOSIS: Change in bowel habits POSTOPERATIVE DIAGNOSIS: Diverticulosis, descending colon polyp 2, anastomotic polyp PROCEDURE: Colonoscopy with biopsy and snare polypectomy ANESTHESIA: MAC SURGEON: Ronald Rodriguez M.D. SPECIMENS: Polyps ENDOSCOPIC PROCEDURE: The patient was placed on the endoscopy table in the left decubitus position. The Olympus colonoscope was inserted into the anus and passed under direct visualization to the base of the cecum. The appendiceal orifice was visualized. From that point the scope was slowly withdrawn inspecting all surfaces carefully. There were no neoplastic inflammatory or polypoid lesions throughout the cecum, ascending, or transverse colon. The patient's sigmoid colon had previously been surgically resected. In the mid descending colon a small polyp was removed and identified using the snare with cautery technique. In the distal descending colon approximately 5- 10 cm proximal to our anastomotic ring was noted to be a diverticular orifice with what appeared to represent a polyp in the diverticulum. A cold biopsy was taken of that polyp. There was no inflammation to suggest recent diverticulitis or perforation of that diverticula. The anastomotic ring was widely patent however there was a polypoid-like lesion on the ring itself which likely represented some granulation tissue. A small biopsy using the cold biopsy forceps took place there as well. The rectum appeared normal. The patient did have [id number] residual diverticulosis involving the entire colon. No definite hemorrhoidal disease or fissures were seen at this time. The patient was taken to the recovery room in stable condition per anesthesia guidelines. RECOMMENDATIONS: Await biopsy results to determine the timing next colonoscopy. Implants: Indications for Procedure: Operative Findings: Description of Procedure:
[2017-04-03 09:17] VITALS: BP 136/84; PULSE 68; RESP 18
== END 2017-04-03 09:57 | disposition home or self-care (01) ==
LOC: ORWHC2ENDO 08:02
PROVIDERS: ATTEND Surgery
DX: K57.30 Diverticulosis of large intestine without perforation or abscess without bleeding (principal); K63.89 Other specified diseases of intestine; K63.3 Ulcer of intestine; C18.9 Malignant neoplasm of colon, unspecified; Z86.010 Personal history of colon polyps; Z90.49 Acquired absence of other specified parts of digestive tract; I10 Essential (primary) hypertension; Z79.899 Other long term (current) drug therapy; Z91.09 Other allergy status, other than to drugs and biological substances
CPT/HCPCS: 88305; 45380; 45385; J2001; J2704

== ENCOUNTER 2017-04-29 15:33 | Emergency (ER) | payer BC ==
[2017-04-29 15:46] VITALS: BP 136/77; PULSE 75; RESP 16; TEMP 97.8
[2017-04-29] MEDS ORDERED: DIPH,PERTUS(ACELL)TETVAC-LF 0.5 ML VIAL IM ONE (16:38)
--- NOTE | 2017-04-29 17:02 | ED ---
Wound/Laceration HPI - General Chief Complaint: Wound/Laceration Stated Complaint: lac right rodriguez Time Seen by Provider: 04/29/17 16:19 Source: patient, RN notes reviewed, old records reviewed Mode of arrival: wheelchair Limitations: no limitations - History of Present Illness Initial Comments: This is a a pleasant 61-year-old female presents emergency Department with a laceration of her right rodriguez. Patient reports that she was stepping off of a step ladder while painting and fell and cut her right rodriguez. Denies any recent tetanus shot. Denies any pain with ambulation. She reports bleeding is well- controlled. Patient states that she has no other injury related to the fall. She states that the rodriguez was cut on the edge of the step. - Related Data Home Medications Medication Instructions Recorded Confirmed Atenolol [Tenormin] 50 mg PO DAILY 10/03/15 04/29/17 Triamterene-Hctz 37.5-25Mg 0.5 tab PO Q48H 10/04/16 04/29/17 [Maxzide 37.5-25] L.acidoph,Paracasei, B.lactis 1 each PO DAILY 04/01/17 04/29/17 [Probiotic] Multivitamins, Thera [Multivitamin 1 tab PO DAILY 04/01/17 04/29/17 (formulary)] Previous Rx's Medication Instructions Recorded Cephalexin [Keflex] 500 mg PO Q8HR #21 cap 04/29/17 Allergies Allergy/AdvReac Type Severity Reaction Status Date / Time adhesive tape Allergy RED SKIN Verified 04/29/17 15:46 WITH ADHESIVE TAPE Review of Systems ROS Statement: Those systems with pertinent positive or pertinent negative responses have been documented in the HPI. ROS Other: All systems not noted in ROS Statement are negative. Constitutional: Denies: fever, chills Eyes: Denies: eye pain ENT: Denies: ear pain, throat pain Respiratory: Denies: cough, dyspnea Cardiovascular: Denies: chest pain Endocrine: Denies: fatigue, heat or cold intolerance Gastrointestinal: Denies: abdominal pain, nausea, vomiting Genitourinary: Denies: urgency, dysuria Musculoskeletal: Denies: back pain Skin: Denies: rash Neurological: Denies: headache Psychiatric: Denies: anxiety Hematological/Lymphatic: Denies: easy bleeding Past Medical History Past Medical History: Hypertension Additional Past Medical History / Comment(s): HX OF DIVERTICULITIS WITH ABCESS PER PATIENT History of Any Multi-Drug Resistant Organisms: None Reported Past Surgical History: Breast Surgery Additional Past Surgical History / Comment(s): BREAST BIOPSY, TOOTH EXTRACTION, D&C Past Anesthesia/Blood Transfusion Reactions: No Reported Reaction Past Psychological History: No Psychological Hx Reported Smoking Status: Never smoker Past Alcohol Use History: None Reported Past Drug Use History: None Reported - Past Family History Mother Family Medical History: No Reported History General Exam - General Exam Comments Initial Comments: 61-year-old female. No distress. Limitations: no limitations General appearance: alert, in no apparent distress Head exam: Present: atraumatic, normocephalic, normal inspection Eye exam: Present: normal appearance, PERRL, EOMI. Absent: scleral icterus, conjunctival injection, periorbital swelling ENT exam: Present: normal exam, mucous membranes moist Neck exam: Present: normal inspection. Absent: tenderness, meningismus, lymphadenopathy Respiratory exam: Present: normal lung sounds bilaterally. Absent: respiratory distress, wheezes, rales, rhonchi, stridor Cardiovascular Exam: Present: regular rate, normal rhythm, normal heart sounds. Absent: systolic murmur, diastolic murmur, rubs, gallop, clicks GI/Abdominal exam: Present: soft, normal bowel sounds. Absent: distended, tenderness, guarding, rebound, rigid Extremities exam: Present: normal inspection, full ROM, normal capillary refill. Absent: tenderness, pedal edema, joint swelling, calf tenderness Right Knee exam: Present: normal inspection, full ROM Lower Leg exam: Present: full ROM, laceration (7cm laceration over anterior rodriguez. ). Absent: normal inspection, tenderness, swelling, abrasion Ankle exam: Present: normal inspection, full ROM Foot/Toe exam: Present: normal inspection, full ROM Neurovascular tendon exam: Present: no vascular compromise Gait: observed and normal Back exam: Present: normal inspection Neurological exam: Present: alert, oriented X3, CN II-XII intact Psychiatric exam: Present: normal affect, normal mood Skin exam: Present: warm, dry, intact, normal color. Absent: rash Course Vital Signs 04/29/17 15:43 Temperature 97.8 F Pulse Rate 75 Respiratory 16 Rate Blood Pressure 136/77 O2 Sat by Pulse 96 Oximetry Procedures - Laceration Laceration #1 Site: lower extremity (right lower anterior leg. ) Size (cm): 7 Description: linear Depth: simple, single layer Anesthetic Used: lidocaine 1% Anesthesia Technique: local infiltration Amount (mls): 10 Pre-repair: wound explored, irrigated extensively Type of Sutures: nylon Size of Sutures: 4-0 Number of Sutures: 11 Technique: simple, interrupted Patient Tolerated Procedure: well, no complications Medical Decision Making - Medical Decision Making 61-year-old female presents emergency department with a right rodriguez laceration after stepping off a step ladder while painting and hitting her rodriguez. Patient had an x-ray, no acute osseous abnormality. Updated on her tetanus. Laceration is presently 7 cm and was closed with 11stitches. Wound was well approximated and well irrigated. Patient advised on return parameters. Patient will be started on Keflex. Patient agrees to treatment plan and will comply, return parameters discussed. - Radiology Data Radiology results: report reviewed Right tib-fib x-ray was reviewed and negative for any acute process. Disposition Clinical Impression: Laceration of right lower leg Disposition: HOME SELF-CARE Condition: Good Instructions: Care For Your Stitches (ED), Laceration (ED) Additional Instructions: Please return to the emergency room in 10-12 days to have sutures removed. Please leave wound covered for the first 24-48 hours and then leave open to air after that time. Please use clean soap and water to clean the suture area to prevent scabbing over the top of your sutures. Please watch for any signs of infection which may include but not limited to increased pain, swelling, redness , fever or chills. Please return to the emergency room if any signs of infection do occur. Please return to the emergency room for any other concerns or complications. Prescriptions: Cephalexin [Keflex] 500 mg PO Q8HR #21 cap Referrals: Fahad Talavera MD [Primary Care Provider] - 1-2 days Time of Disposition: 17:02
--- NOTE | 2017-04-29 17:05 | XR ---
EXAMINATION TYPE: XR tibia fibula RT DATE OF EXAM: 04/29/2017 COMPARISON: NONE HISTORY: Laceration TECHNIQUE: 4 views FINDINGS: I see no fracture nor dislocation. Tibia and fibula appear intact. IMPRESSION: Negative right tibia and fibula exam.
== END 2017-04-29 18:02 | disposition home or self-care (01) ==
LOC: EC 15:33
DX: S81.811A Laceration without foreign body, right lower leg, initial encounter (principal); Z79.899 Other long term (current) drug therapy; Z91.048 Other nonmedicinal substance allergy status; W11.XXXA Fall on and from ladder, initial encounter; Y93.89 Activity, other specified
CPT/HCPCS: 12002; 90471; 90715; 99283

== ENCOUNTER → 2017-08-09 | Outpatient (CLI) | payer BC ==
--- NOTE | 2017-08-15 14:31 | MM ---
Reason for exam: screening (asymptomatic). Last mammogram was performed 14 years and 6 months ago. History: Patient is nulliparous. Family history of breast cancer. Excisional biopsy of the right breast. Physical Findings: A clinical breast exam by your physician is recommended on an annual basis and results should be correlated with mammographic findings. MG Screening Mammo w CAD Bilateral CC and MLO view(s) were taken. No prior studies available for comparison. The breast tissue is heterogeneously dense. This may lower the sensitivity of mammography. Finding: There are segmental fine calcifications in the upper outer quadrant of the right breast, 7cm from the nipple. ASSESSMENT: Incomplete: need additional imaging evaluation, BI-RAD 0 RECOMMENDATION: Special view mammogram of the right breast. [facility] will attempt to contact patient to return for supplemental views.
== END | disposition home or self-care (01) ==
LOC: RADMAMWWP 09:12
PROVIDERS: ATTEND Obstetrics & Gynecology
DX: Z12.31 Encounter for screening mammogram for malignant neoplasm of breast (principal)

== ENCOUNTER → 2017-08-21 | Outpatient (CLI) | payer BC ==
--- NOTE | 2017-08-21 10:07 | MM ---
Reason for exam: additional evaluation requested from abnormal screening. Last mammogram was performed less than 1 month ago. History: Patient is postmenopausal and is nulliparous. Family history of breast cancer in grandmother at age 36. Excisional biopsy of the right breast. Physical Findings: Nurse did not find any significant physical abnormalities on exam. MG Work Up Mamm w CAD RT CC with magnification, ML with magnification, and ML view(s) were taken of the right breast. Prior study comparison: August 09, 2017, bilateral MG screening mammo w CAD. Finding: There are intermediate concern, suspicious heterogeneous, grouped/clustered calcifications in the upper outer quadrant, middle position of the right breast. These results were verbally communicated with the patient and result sheet given to the patient on 08/21/17. ASSESSMENT: Suspicious, BI-RAD 4 RECOMMENDATION: Stereotactic core biopsy of the right breast. Called Dr. Vazquez with mammographic findings and has scheduled an appointment for the patient for 09/25/17 at 4:[address] Rodriguez. Biopsy scheduled for 08/28/17 at 12:20. PRELIMINARY REPORT CALLED AND FAXED TO DR. RODRIGUEZ ON 08/21/17.
== END | disposition home or self-care (01) ==
LOC: RADMAMWWP 08:27
PROVIDERS: ATTEND Obstetrics & Gynecology
DX: R92.8 Other abnormal and inconclusive findings on diagnostic imaging of breast (principal)
CPT/HCPCS: 77065

== ENCOUNTER → 2017-08-28 | Day surgery (SDC) | payer BC ==
[2017-08-28 11:35] VITALS: BP 132/66; PULSE 66; RESP 16; TEMP 97.8; BMI 33.6
--- NOTE | 2017-08-28 13:14 | MM ---
Stereotactic Mammotome core biopsy right breast. HISTORY: Right breast microcalcifications. The microcalcifications in question within the right breast were targeted by the undersigned. Procedure was performed by the undersigned. Informed consent was obtained and all of the patients questions were answered. The standard sterile technique was utilized and appropriate local anesthesia was obtained with 1% lidocaine. Mammotome probe was advanced and multiple core samples were obtained and sent to pathology for interpretation. Microclip marker was deployed at the site of biopsy. Post procedural mammogram demonstrates appropriate deployment of radiopaque clip marker. The patient tolerated the procedure well and left the department in stable condition. Pathology results are pending. IMPRESSION: Successful stereotactic core biopsy right breast with pathology results pending. Pathology Results: Benign BREAST, RIGHT, STEREOTACTIC CORE BIOPSY: FIBROCYSTIC CHANGE (STROMAL FIBROSIS, CYST FORMATION, ADENOSIS, DUCT HYPERPLASIA AND CALCIFICATIONS). Recommendation Follow up mammogram of the right breast in 6 months. ENRIQUE
== END ==
LOC: RADMAMWWP 11:15
PROVIDERS: ATTEND Surgery
DX: N60.31 Fibrosclerosis of right breast (principal); N60.01 Solitary cyst of right breast; N60.21 Fibroadenosis of right breast; N60.91 Unspecified benign mammary dysplasia of right breast; R92.1 Mammographic calcification found on diagnostic imaging of breast; Z91.09 Other allergy status, other than to drugs and biological substances
CPT/HCPCS: 88305; 19081; A4648; J2001

== ENCOUNTER → 2018-02-27 | Outpatient (CLI) | payer BC ==
--- NOTE | 2018-02-27 14:47 | MM ---
Reason for exam: follow-up at short interval from prior study. Last mammogram was performed 6 months ago. History: Patient is postmenopausal and is nulliparous. Family history of breast cancer in grandmother at age 36. Benign MG stereo VAD BX RT of the right breast, August 28, 2017. Excisional biopsy of the right breast. Physical Findings: Nurse did not find any significant physical abnormalities on exam. MG Diagnostic Mammo RT w CAD CC and MLO view(s) were taken of the right breast. Prior study comparison: August 21, 2017, right breast MG work up mamm w CAD RT. August 09, 2017, bilateral MG screening mammo w CAD. The breast tissue is heterogeneously dense. This may lower the sensitivity of mammography. Finding: There are typically benign regional calcifications in the right breast. Previous mammotome biopsy in the right breast. Benign right axillary lymph nodes. These results were verbally communicated with the patient and result sheet given to the patient on 02/27/18. ASSESSMENT: Benign, BI-RAD 2 RECOMMENDATION: Return to routine screening mammogram schedule for both breasts. Back on schedule.
== END | disposition home or self-care (01) ==
LOC: RADMAMWWP 08:10
PROVIDERS: ATTEND Surgery
DX: R92.8 Other abnormal and inconclusive findings on diagnostic imaging of breast (principal)
CPT/HCPCS: 77065

== ENCOUNTER → 2018-08-21 | Outpatient (CLI) | payer BC ==
--- NOTE | 2018-08-28 14:22 | MM ---
Reason for exam: follow-up at short interval from prior study. Last mammogram was performed 6 months ago. History: Patient is postmenopausal and is nulliparous. Family history of breast cancer in grandmother at age 36. Benign MG stereo VAD BX RT of the right breast, August 28, 2017. Excisional biopsy of the right breast. MG Screening Mammo w CAD Bilateral CC and MLO view(s) were taken. Prior study comparison: February 27, 2018, right breast MG diagnostic mammo RT w CAD. August 21, 2017, right breast MG work up mamm w CAD RT. Focal asymmetry left breast 9 o'clock position with a couple of calcification. Additional work up is recommended. ASSESSMENT: Incomplete: need additional imaging evaluation, BI-RAD 0 RECOMMENDATION: Special view mammogram of the left breast.
== END ==
LOC: RADMAMWWP 08:34
PROVIDERS: ATTEND Internal Medicine
DX: Z12.31 Encounter for screening mammogram for malignant neoplasm of breast (principal)
CPT/HCPCS: 77067

== ENCOUNTER → 2018-09-04 | Outpatient (CLI) | payer BC ==
--- NOTE | 2018-09-08 18:39 | MM ---
Reason for exam: additional evaluation requested from abnormal screening. Last mammogram was performed less than 1 month ago. History: Patient is postmenopausal and is nulliparous. Family history of breast cancer in grandmother at age 36. Benign MG stereo VAD BX RT of the right breast, August 28, 2017. Excisional biopsy of the right breast. Took hormonal contraceptives for 10 years beginning at age 19. Physical Findings: Nurse did not find any significant physical abnormalities on exam. MG 3D Work Up W/Cad LT Spot compression CC with magnification, MLO, ML with magnification, and ML view(s) were taken of the left breast. Prior study comparison: August 21, 2018, bilateral MG screening mammo w CAD. February 27, 2018, right breast MG diagnostic mammo RT w CAD. The breast tissue is heterogeneously dense. This may lower the sensitivity of mammography. There are benign-appearing round scattered left breast calcifications. The upper inner quadrant left middle posterior depth focal asymmetry appears improved from 2017, however on spot cc there is a persistent 4mm mass in the inner quadrant corresponding to an asymmetry of the upper breast 10 cm from the nipple.. ASSESSMENT: Incomplete: need additional imaging evaluation, BI-RAD 0 RECOMMENDATION: Ultrasound of the left breast.
--- NOTE | 2018-09-08 18:42 | USB ---
History: Patient is postmenopausal and is nulliparous. Family history of breast cancer in grandmother at age 36. Benign MG stereo VAD BX RT of the right breast, August 28, 2017. Excisional biopsy of the right breast. Took hormonal contraceptives for 10 years beginning at age 19. US Breast Workup Limited LT Left limited breast ultrasound including focal area of concern, retroareolar and axilla demonstrates No suspicious sonographic finding. Multifocal dense tissue likely relation the the mammographic focal asymmetry. These results were verbally communicated with the patient and result sheet given to the patient on 09/04/18. ASSESSMENT: Probably benign, BI-RAD 3 RECOMMENDATION: Follow-up diagnostic mammogram of the left breast in 6 months.
== END | disposition home or self-care (01) ==
LOC: RADMAMWWP 08:07
PROVIDERS: ATTEND Internal Medicine
DX: R92.8 Other abnormal and inconclusive findings on diagnostic imaging of breast (principal)
CPT/HCPCS: 77061; 77065

== ENCOUNTER 2020-06-23 11:58 | Inpatient (IN) | payer MEDICARE ==
[~2020-06-23 11:58] MED LIST changes: +HYDROmorphone 0.5 MG/0.5 ML SYRINGE IVP ONE; -LACTATED RINGERS 1,000 ML IV SCH; -LIDOCAINE 1% 20 ML VIAL (10MG/ML) FOR IV START INTRADERMA PRN
[2020-06-23] MEDS ORDERED: SODIUM CHLORIDE 0.9% 500 ML 500 ML IV ONE ×2 (12:33→13:24)
[2020-06-23 13:00] LABS: Basophils % (A) 0 %; Eosinophils # (A) 0.1 k/uL (0-0.7); Eosinophils % (A) 1 %; HCT 45.2 % (34.0-46.0); HGB 14.8 gm/dL (11.4-16.0); Lymphocytes # (A) 1.1 k/uL (1.0-4.8); Lymphocytes % (A) 7 %; MCH 29.5 pg (25.0-35.0); MCHC 32.9 g/dL (31.0-37.0); MCV 89.8 fL (80.0-100.0); Mean Platelet Volume 7.7; Monocytes # (A) 0.7 k/uL (0-1.0); Monocytes % (A) 5 %; Neutrophils # (A) 13.4 k/uL (1.3-7.7); Neutrophils % (A) 87 %; Platelet Count 322 k/uL (150-450); RBC 5.03 m/uL (3.80-5.40); RDW 13.7 % (11.5-15.5); WBC 15.4 k/uL (3.8-10.6)
[2020-06-23 13:15] LABS: Appearance,Urine Cloudy (Clear); Bacteria,Urine Occasional /hpf; Bilirubin,Urine 1+ (Negative); Blood,Urine Moderate (Negative); Color,Urine Yellow; Glucose,Urine (UA) Negative (Negative); Ketones,Urine Negative (Negative); Leukocyte Esterase,Urine Moderate (Negative); Mucus,Urine Moderate /hpf; Nitrite,Urine Negative (Negative); Protein,Urine 1+ (Negative); RBC,Urine 6 /hpf (0-5); Specific Gravity,Urine 1.028 (1.001-1.035); Squamous Epithelial Cell,Urine 7 /hpf (0-4); WBC,Urine 22 /hpf (0-5)
[2020-06-23 13:19] LABS: ALT 39 U/L (4-34); AST 58 U/L (14-36); African American GFR (CKD) >90 (>60 ml/min/1.73 sqM); Albumin 4.9 g/dL (3.5-5.0); Alkaline Phosphatase 101 U/L (38-126); Anion Gap 12 mmol/L; Blood Urea Nitrogen 16 mg/dL (7-17); Calcium 11.4 mg/dL (8.4-10.2); Carbon Dioxide 25 mmol/L (22-30); Chloride 98 mmol/L (98-107); Glucose 140 mg/dL (74-99); Lipase 38 U/L (23-300); Non-African American GFR(CKD) >90 (>60 ml/min/1.73 sqM); Sodium 135 mmol/L (137-145); Total Bilirubin 1.9 mg/dL (0.2-1.3); Total Protein 8.7 g/dL (6.3-8.2)
[2020-06-23 13:21] LABS: Potassium 4.2 mmol/L (3.5-5.1)
[2020-06-23] MEDS ORDERED: PIPERACILLIN-TAZOBACTAM 3.375 GM in SODIUM CHLORIDE 0.9% 100 ML IVPB STA (13:43)
--- NOTE | 2020-06-23 13:45 | ED ---
General Adult HPI - General Chief complaint: Abdominal Pain Stated complaint: diverticulitis Time Seen by Provider: 06/23/20 12:15 Source: patient, RN notes reviewed, old records reviewed Mode of arrival: ambulatory Limitations: no limitations - History of Present Illness Initial comments: 64-year-old female patient to ED for evaluation of abdominal pain. Patient was sent for the last 2 days she has been having denies abdominal discomfort. Reports some nausea without emesis. Reports that the pain is worse in her periumbilical region. Patient does report a history of a bowel resection about 4 years ago due to diverticulitis. Dr. Rodriguez is her surgeon. Denies any other complaints. Systemic: Pt denies fatigue, fever/chills, rash. Pt denies weakness, night sweats, weight loss. Neuro: Pt denies headache, visual disturbances, syncope or pre-syncope. HEENT: Pt denies ocular discharge or irritation, otalgia, rhinorrhea, pharyn gitis or notable lymphadenopathy. Cardiopulmonary: Pt denies chest pain, SOB, heart palpitations, dyspnea on exertion. Abdominal/GI: Pt denies n/v/d. : Pt denies dysuria, burning w/ urination, frequency/urgency. Denies new onset urinary or bowel incontinence. MSK: Pt denies myalgia, loss of strength or function in extremities. Neuro: Pt denies new onset weakness, paresthesias. - Related Data Home Medications Medication Instructions Recorded Confirmed atenoloL [Tenormin] 50 mg PO DAILY 10/03/15 06/23/20 Triamterene-Hctz 37.5-25Mg 0.5 tab PO Q48H 10/04/16 06/23/20 [Maxzide 37.5-25] Multivitamins, Thera [Multivitamin 1 tab PO DAILY 04/01/17 06/23/20 (formulary)] Vitamin B Complex 1 each PO DAILY 08/22/17 06/23/20 Biotin 5 mg PO DAILY 06/23/20 06/23/20 Allergies Allergy/AdvReac Type Severity Reaction Status Date / Time adhesive tape Allergy RED SKIN Verified 06/23/20 13:59 WITH ADHESIVE TAPE Latex, Natural Rubber Allergy Unknown Verified 06/23/20 13:59 Review of Systems ROS Statement: Those systems with pertinent positive or pertinent negative responses have been documented in the HPI. ROS Other: All systems not noted in ROS Statement are negative. Past Medical History Past Medical History: Hypertension Additional Past Medical History / Comment(s): HX OF DIVERTICULITIS WITH ABCESS PER PATIENT History of Any Multi-Drug Resistant Organisms: None Reported Past Surgical History: Bowel Resection, Breast Surgery Additional Past Surgical History / Comment(s): BREAST BIOPSY, TOOTH EXTRACTION, D&C Past Anesthesia/Blood Transfusion Reactions: No Reported Reaction Past Psychological History: No Psychological Hx Reported Smoking Status: Never smoker Past Alcohol Use History: Occasional Past Drug Use History: None Reported - Past Family History Mother Family Medical History: No Reported History General Exam - General Exam Comments Initial Comments: Constitutional: NAD, AOX3, Pt has pleasant affect. HEENT: NC/AT, trachea midline, neck supple, no lymphadenopathy. Posterior pharynx non erythematous, without exudates. External ears appear normal, without discharge. Mucous membranes moist. Eyes PERRLA, EOM intact. There is no scleral icterus. No pallor noted. Cardiopulmonary: RRR, no murmurs, rubs or gallops, no JVD noted. Lungs CTAB in anterior and posterior calix. No peripheral edema. Abdominal exam: Abdomen soft and non-distended. Abdomen mildly tender to palpation in periumbilical region. There is an anterior abdominal hernia which is soft and partially reducible. Bowel sounds active in LLQ. No hepatosplenomegaly. Neuro: CN II-XII grossly intact. No nuchal rigidity. No raccon eyes, no bateman sign, no hemotympanum. No cervical spinal tenderness. MSK: No posterior calf tenderness bilaterally, homans sign negative bilaterally. Posterior tibialis and radial pulse +2 bilaterally. Sensation intact in upper and lower extremities. Full active ROM in upper and lower extremities, 5/5 stregnth. Limitations: no limitations Course Vital Signs 06/23/20 06/23/20 12:01 17:52 Temperature 98.4 F Pulse Rate 107 H 80 Respiratory 18 18 Rate Blood Pressure 155/82 125/81 O2 Sat by Pulse 95 96 Oximetry Medical Decision Making - Medical Decision Making 64-year-old female patient ED for abdominal pain. Pt VSS, afebrile. Patient does have a hernia which is partially reducible and soft. CT doesn't display an abdominal hernia with some fat stranding around it. Mild leukocytosis. Lactic acid is mildly elevated. Case was discussed and patient was seen by Teressa who contacted patients surgeon Dr. Thomas. Dr. Thomas was in surgery so Dr. Guillen was paged, she recommended that Dr. Thomas manage patient. At shift change Dr. Gannon endorsed patient to Dr. Molina. Patients discomfort minimal, patient had multiple bowel movements. Dr. Thomas evaluated patient and recommended surgery tomorrow. - Lab Data Result diagrams: 06/23/20 12:37 06/23/20 12:37 Lab Results 06/23/20 06/23/20 06/23/20 Range/Units 12:37 12:37 12:37 WBC 15.4 H (3.8-10.6) k/uL RBC 5.03 (3.80-5.40) m/uL Hgb 14.8 (11.4-16.0) gm/dL Hct 45.2 (34.0-46.0) % MCV 89.8 (80.0-100.0) fL MCH 29.5 (25.0-35.0) pg MCHC 32.9 (31.0-37.0) g/dL RDW 13.7 (11.5-15.5) % Plt Count 322 (150-450) k/uL Neutrophils % 87 % Lymphocytes % 7 % Monocytes % 5 % Eosinophils % 1 % Basophils % 0 % Neutrophils # 13.4 H (1.3-7.7) k/uL Lymphocytes # 1.1 (1.0-4.8) k/uL Monocytes # 0.7 (0-1.0) k/uL Eosinophils # 0.1 (0-0.7) k/uL Basophils # 0.0 (0-0.2) k/uL Sodium 135 L (137-145) mmol/L Potassium 4.2 (3.5-5.1) mmol/L Chloride 98 (98-107) mmol/L Carbon Dioxide 25 (22-30) mmol/L Anion Gap 12 mmol/L BUN 16 (7-17) mg/dL Creatinine 0.68 (0.52-1.04) mg/dL Est GFR (CKD-EPI)AfAm >90 (>60 ml/min/1.73 sqM) Est GFR (CKD-EPI)NonAf >90 (>60 ml/min/1.73 sqM) Glucose 140 H (74-99) mg/dL Lactic Ac Sepsis Rflx Plasma Lactic Acid Satya (0.7-2.0) mmol/L Calcium 11.4 H (8.4-10.2) mg/dL Total Bilirubin 1.9 H (0.2-1.3) mg/dL AST 58 H (14-36) U/L ALT 39 H (4-34) U/L Alkaline Phosphatase 101 (38-126) U/L Troponin I (0.000-0.034) ng/mL Total Protein 8.7 H (6.3-8.2) g/dL Albumin 4.9 (3.5-5.0) g/dL Lipase 38 (23-300) U/L Urine Color Yellow Urine Appearance Cloudy H (Clear) Urine pH 6.0 (5.0-8.0) Ur Specific Hutchinson 1.028 (1.001-1.035) Urine Protein 1+ H (Negative) Urine Glucose (UA) Negative (Negative) Urine Ketones Negative (Negative) Urine Blood Moderate H (Negative) Urine Nitrite Negative (Negative) Urine Bilirubin 1+ H (Negative) Urine Urobilinogen 2.0 (<2.0) mg/dL Ur Leukocyte Esterase Moderate H (Negative) Urine RBC 6 H (0-5) /hpf Urine WBC 22 H (0-5) /hpf Ur Squamous Epith Cells 7 H (0-4) /hpf Urine Bacteria Occasional H (None) /hpf Urine Mucus Moderate H (None) /hpf 06/23/20 06/23/20 06/23/20 Range/Units 12:37 12:37 13:22 WBC (3.8-10.6) k/uL RBC (3.80-5.40) m/uL Hgb (11.4-16.0) gm/dL Hct (34.0-46.0) % MCV (80.0-100.0) fL MCH (25.0-35.0) pg MCHC (31.0-37.0) g/dL RDW (11.5-15.5) % Plt Count (150-450) k/uL Neutrophils % % Lymphocytes % % Monocytes % % Eosinophils % % Basophils % % Neutrophils # (1.3-7.7) k/uL Lymphocytes # (1.0-4.8) k/uL Monocytes # (0-1.0) k/uL Eosinophils # (0-0.7) k/uL Basophils # (0-0.2) k/uL Sodium (137-145) mmol/L Potassium (3.5-5.1) mmol/L Chloride (98-107) mmol/L Carbon Dioxide (22-30) mmol/L Anion Gap mmol/L BUN (7-17) mg/dL Creatinine (0.52-1.04) mg/dL Est GFR (CKD-EPI)AfAm (>60 ml/min/1.73 sqM) Est GFR (CKD-EPI)NonAf (>60 ml/min/1.73 sqM) Glucose (74-99) mg/dL Lactic Ac Sepsis Rflx Y Plasma Lactic Acid Satya 2.7 H* (0.7-2.0) mmol/L Calcium (8.4-10.2) mg/dL Total Bilirubin (0.2-1.3) mg/dL AST (14-36) U/L ALT (4-34) U/L Alkaline Phosphatase (38-126) U/L Troponin I <0.012 (0.000-0.034) ng/mL Total Protein (6.3-8.2) g/dL Albumin (3.5-5.0) g/dL Lipase (23-300) U/L Urine Color Urine Appearance (Clear) Urine pH (5.0-8.0) Ur Specific Hutchinson (1.001-1.035) Urine Protein (Negative) Urine Glucose (UA) (Negative) Urine Ketones (Negative) Urine Blood (Negative) Urine Nitrite (Negative) Urine Bilirubin (Negative) Urine Urobilinogen (<2.0) mg/dL Ur Leukocyte Esterase (Negative) Urine RBC (0-5) /hpf Urine WBC (0-5) /hpf Ur Squamous Epith Cells (0-4) /hpf Urine Bacteria (None) /hpf Urine Mucus (None) /hpf 06/23/20 Range/Units 16:00 WBC (3.8-10.6) k/uL RBC (3.80-5.40) m/uL Hgb (11.4-16.0) gm/dL Hct (34.0-46.0) % MCV (80.0-100.0) fL MCH (25.0-35.0) pg MCHC (31.0-37.0) g/dL RDW (11.5-15.5) % Plt Count (150-450) k/uL Neutrophils % % Lymphocytes % % Monocytes % % Eosinophils % % Basophils % % Neutrophils # (1.3-7.7) k/uL Lymphocytes # (1.0-4.8) k/uL Monocytes # (0-1.0) k/uL Eosinophils # (0-0.7) k/uL Basophils # (0-0.2) k/uL Sodium (137-145) mmol/L Potassium (3.5-5.1) mmol/L Chloride (98-107) mmol/L Carbon Dioxide (22-30) mmol/L Anion Gap mmol/L BUN (7-17) mg/dL Creatinine (0.52-1.04) mg/dL Est GFR (CKD-EPI)AfAm (>60 ml/min/1.73 sqM) Est GFR (CKD-EPI)NonAf (>60 ml/min/1.73 sqM) Glucose (74-99) mg/dL Lactic Ac Sepsis Rflx Plasma Lactic Acid Satya 1.8 (0.7-2.0) mmol/L Calcium (8.4-10.2) mg/dL Total Bilirubin (0.2-1.3) mg/dL AST (14-36) U/L ALT (4-34) U/L Alkaline Phosphatase (38-126) U/L Troponin I (0.000-0.034) ng/mL Total Protein (6.3-8.2) g/dL Albumin (3.5-5.0) g/dL Lipase (23-300) U/L Urine Color Urine Appearance (Clear) Urine pH (5.0-8.0) Ur Specific Hutchinson (1.001-1.035) Urine Protein (Negative) Urine Glucose (UA) (Negative) Urine Ketones (Negative) Urine Blood (Negative) Urine Nitrite (Negative) Urine Bilirubin (Negative) Urine Urobilinogen (<2.0) mg/dL Ur Leukocyte Esterase (Negative) Urine RBC (0-5) /hpf Urine WBC (0-5) /hpf Ur Squamous Epith Cells (0-4) /hpf Urine Bacteria (None) /hpf Urine Mucus (None) /hpf Disposition Clinical Impression: Abdominal hernia Disposition: ADMITTED IP TO THIS HOSP Condition: Serious Is patient prescribed a controlled substance at d/c from ED?: No
--- NOTE | 2020-06-23 13:49 | CT ---
EXAMINATION TYPE: CT abdomen pelvis wo con DATE OF EXAM: 06/23/2020 COMPARISON: 08/17/2016 HISTORY: LLQ pain with constipation. CT DLP: 1134.4 mGycm Automated exposure control for dose reduction was used. TECHNIQUE: Helical acquisition of images was performed from the lung bases through the pelvis. FINDINGS: LUNG BASES: Subsegmental linear changes at the lung bases LIVER/GB: Liver is enlarged. Reduced attenuation liver suggestive of hepatomegaly. Small gallstone no joshua.. PANCREAS: No significant abnormality is seen. SPLEEN: No significant abnormality is seen. ADRENALS: Thickening of the left adrenal gland. KIDNEYS: No significant abnormality is seen. URINARY BLADDER: No significant abnormality is seen. ADENOPATHY: None visualized. OSSEOUS STRUCTURES: Hypertrophic and degenerative change of the spine. BOWEL: There is a large anterior abdominal wall hernia containing peritoneal fat as well as a bowel loop. Small amount of fluid within the hernia sac is seen and there is mild inflammatory change of th e fat. Mild amount of inflammatory changes seen anteriorly within the mesentery. This likely is relat ed to hernia. Obstructive or partial obstructive changes with incarcerated or strangulated hernia not excluded. There is changes of diverticulosis. Postsurgical changes in the pelvis. No free fluid. No free air. OTHER: Aorta of normal caliber. There is a small hiatal hernia. IMPRESSION: LARGE ANTERIOR ABDOMINAL WALL HERNIA CONTAINING PERITONEAL FAT AND BOWEL LOOPS CORRELATE FOR PARTIAL OBSTRUCTIVE HERNIA. THERE IS INFLAMMATORY CHANGE WITHIN THE ANTERIOR MESENTERY AND WITHIN THE HERNIA SAC THEREFORE DEGREE OF INCARCERATION OR STRANGULATION NOT EXCLUDED. REPORT DISCUSSED WITH [facility]
[2020-06-23] MEDS ORDERED: ACETAMINOPHEN TAB 325 MG TAB PO STA (17:21)
[2020-06-23] MEDS ORDERED: HYDROmorphone 0.5 MG/0.5 ML SYRINGE IVP PRN (17:53)
[2020-06-23] MEDS ORDERED: NALOXONE 0.4 MG/ML 1 ML VIAL IV PRN (17:55)
--- NOTE | 2020-06-23 18:02 | P.GSHP ---
History of Present Illness H&P Date: 06/23/20 Chief Complaint: incarcerated incisional hernia 64-year-old female known to our service. He called our office this morning complaining of abdominal pain. She was concerned she had diverticulitis again. History of previous sigmoid resection September 2016 for diverticulitis. She was instructed to go to the ER for further evaluation. Patient states she had an episode in March that was similar to this. Pain is midabdomen. She does have a bulge there that has been there for some time. Pain is crampy in nature. She had episodes of nausea last night. Symptoms began 2 days ago. - Review of Systems Comment: The patient denies any acute changes in vision or hearing, no dysphagia or odynophagia, no chest pain or shortness of breath, no dysuria or hematuria, no headache, no runny nose, no rectal bleeding or melena, no unexplained weight loss Past Medical History Past Medical History: Hypertension Additional Past Medical History / Comment(s): HX OF DIVERTICULITIS WITH ABCESS PER PATIENT History of Any Multi-Drug Resistant Organisms: None Reported Past Surgical History: Bowel Resection, Breast Surgery Additional Past Surgical History / Comment(s): BREAST BIOPSY, TOOTH EXTRACTION, D&C Past Anesthesia/Blood Transfusion Reactions: No Reported Reaction Past Psychological History: No Psychological Hx Reported Smoking Status: Never smoker Past Alcohol Use History: Occasional Past Drug Use History: None Reported - Past Family History Mother Family Medical History: No Reported History Medications and Allergies Home Medications Medication Instructions Recorded Confirmed Type atenoloL [Tenormin] 50 mg PO DAILY 10/03/15 06/23/20 History Triamterene-Hctz 37.5-25Mg 0.5 tab PO Q48H 10/04/16 06/23/20 History [Maxzide 37.5-25] Multivitamins, Thera [Multivitamin 1 tab PO DAILY 04/01/17 06/23/20 History (formulary)] Vitamin B Complex 1 each PO DAILY 08/22/17 06/23/20 History Biotin 5 mg PO DAILY 06/23/20 06/23/20 History Allergies Allergy/AdvReac Type Severity Reaction Status Date / Time adhesive tape Allergy RED SKIN Verified 06/23/20 13:59 WITH ADHESIVE TAPE Latex, Natural Rubber Allergy Unknown Verified 06/23/20 13:59 Surgical - Exam Vital Signs Temp Pulse Resp BP Pulse Ox 98.4 F 107 H 18 155/82 95 06/23/20 12:01 06/23/20 12:01 06/23/20 12:01 06/23/20 12:01 06/23/20 12:01 Physical exam: General: Well-developed, well-nourished HEENT: Normocephalic, sclerae nonicteric Abdomen: Mildly distended, obese, partially reducible incarcerated incisional hernia above umbilicus, mild tenderness at hernia site, no skin changes Extremities: No edema Neuro: Alert and oriented Results - Labs 06/23/20 12:37 06/23/20 12:37 Abnormal Lab Results - Last 24 Hours (Table) 06/23/20 06/23/20 06/23/20 Range/Units 12:37 12:37 12:37 WBC 15.4 H (3.8-10.6) k/uL Neutrophils # 13.4 H (1.3-7.7) k/uL Sodium 135 L (137-145) mmol/L Glucose 140 H (74-99) mg/dL Plasma Lactic Acid Satya (0.7-2.0) mmol/L Calcium 11.4 H (8.4-10.2) mg/dL Total Bilirubin 1.9 H (0.2-1.3) mg/dL AST 58 H (14-36) U/L ALT 39 H (4-34) U/L Total Protein 8.7 H (6.3-8.2) g/dL Urine Appearance Cloudy H (Clear) Urine Protein 1+ H (Negative) Urine Blood Moderate H (Negative) Urine Bilirubin 1+ H (Negative) Ur Leukocyte Esterase Moderate H (Negative) Urine RBC 6 H (0-5) /hpf Urine WBC 22 H (0-5) /hpf Ur Squamous Epith Cells 7 H (0-4) /hpf Urine Bacteria Occasional H (None) /hpf Urine Mucus Moderate H (None) /hpf 06/23/20 Range/Units 12:37 WBC (3.8-10.6) k/uL Neutrophils # (1.3-7.7) k/uL Sodium (137-145) mmol/L Glucose (74-99) mg/dL Plasma Lactic Acid Satya 2.7 H* (0.7-2.0) mmol/L Calcium (8.4-10.2) mg/dL Total Bilirubin (0.2-1.3) mg/dL AST (14-36) U/L ALT (4-34) U/L Total Protein (6.3-8.2) g/dL Urine Appearance (Clear) Urine Protein (Negative) Urine Blood (Negative) Urine Bilirubin (Negative) Ur Leukocyte Esterase (Negative) Urine RBC (0-5) /hpf Urine WBC (0-5) /hpf Ur Squamous Epith Cells (0-4) /hpf Urine Bacteria (None) /hpf Urine Mucus (None) /hpf Diabetes panel 06/23/20 Range/Units 12:37 Sodium 135 L (137-145) mmol/L Potassium 4.2 (3.5-5.1) mmol/L Chloride 98 (98-107) mmol/L Carbon Dioxide 25 (22-30) mmol/L BUN 16 (7-17) mg/dL Creatinine 0.68 (0.52-1.04) mg/dL Glucose 140 H (74-99) mg/dL Calcium 11.4 H (8.4-10.2) mg/dL AST 58 H (14-36) U/L ALT 39 H (4-34) U/L Alkaline Phosphatase 101 (38-126) U/L Total Protein 8.7 H (6.3-8.2) g/dL Albumin 4.9 (3.5-5.0) g/dL Calcium panel 06/23/20 Range/Units 12:37 Calcium 11.4 H (8.4-10.2) mg/dL Albumin 4.9 (3.5-5.0) g/dL Pituitary panel 06/23/20 Range/Units 12:37 Sodium 135 L (137-145) mmol/L Potassium 4.2 (3.5-5.1) mmol/L Chloride 98 (98-107) mmol/L Carbon Dioxide 25 (22-30) mmol/L BUN 16 (7-17) mg/dL Creatinine 0.68 (0.52-1.04) mg/dL Glucose 140 H (74-99) mg/dL Calcium 11.4 H (8.4-10.2) mg/dL Adrenal panel 06/23/20 Range/Units 12:37 Sodium 135 L (137-145) mmol/L Potassium 4.2 (3.5-5.1) mmol/L Chloride 98 (98-107) mmol/L Carbon Dioxide 25 (22-30) mmol/L BUN 16 (7-17) mg/dL Creatinine 0.68 (0.52-1.04) mg/dL Glucose 140 H (74-99) mg/dL Calcium 11.4 H (8.4-10.2) mg/dL Total Bilirubin 1.9 H (0.2-1.3) mg/dL AST 58 H (14-36) U/L ALT 39 H (4-34) U/L Alkaline Phosphatase 101 (38-126) U/L Total Protein 8.7 H (6.3-8.2) g/dL Albumin 4.9 (3.5-5.0) g/dL Assessment and Plan (1) Incarcerated incisional hernia Narrative/Plan: 64-year-old female with presentation consistent with incarcerated incisional hernia with mild inflammatory changes and early small bowel obstruction. Hernia able to be partially reduced by both myself and the ER staff. She does feel better currently. She has had a bowel movement. Options reviewed in detail. Favor operative approach at this time. We'll schedule for repair incarcerated incisional hernia with possible mesh. Risks of bleeding, infection, recurrence, bladder and bowel injury, numbness, nerve injury , mesh infection or complications were discussed with the patient. The patient understands and wis hes to proceed. Current Visit: Yes Status: Acute Code(s): K43.0 - INCISIONAL HERNIA WITH OBSTRUCTION, WITHOUT GANGRENE SNOMED Code(s): 135141797
[2020-06-23] MEDS: D5-0.45% NACL WITH KCL 20MEQ/L 1,000 ML IV SCH ×2 (18:20→22:47)
[2020-06-23] MEDS ORDERED: HYDROmorphone (PF) 1 MG/ML ONE (19:00)
[2020-06-23] MEDS ORDERED: MIDAZOLAM 2 MG/2 ML VIAL ONE (19:00)
[2020-06-23] MEDS ORDERED: fentaNYL (PF) 50 MCG/ML 2 ML AMP ONE (19:00)
[2020-06-23] MEDS ORDERED: KETOROLAC 15 MG/ML 1 ML VIAL ONE (19:00)
[2020-06-23] MEDS ORDERED: LIDOCAINE 1% INJ 10MG/ML (20 ML MDV) ONE (19:00)
[2020-06-23] MEDS ORDERED: ROCURONIUM 10 MG/ML (10 ML VIAL) IV ONE (19:00)
[2020-06-23] MEDS ORDERED: PROPOFOL 10 MG/ML 20 ML VIAL IV ONE (19:00)
[2020-06-23] MEDS ORDERED: NEOSTIGMINE 1 MG/ML 10 ML VIAL ONE (19:00)
[2020-06-23] MEDS ORDERED: SUCCINYLCHOLINE CHLORIDE 100 MG/5 ML SYR IV ONE (19:00)
[2020-06-23] MEDS ORDERED: GLYCOPYRROLATE 0.2 MG/ML 2 ML VIAL ONE (19:00)
[2020-06-23] MEDS ORDERED: LACTATED RINGERS 1,000 ML IV ONE ×3 (19:02→21:38)
[2020-06-23] MEDS ORDERED: SODIUM CHLORIDE 0.9% 100 ML with ceFAZolin 2,000 MG IV ONE ×2 (19:24)
--- NOTE | 2020-06-23 20:27 | P.OP ---
Date of Procedure: 06/23/20 Procedure(s) Performed: PREOPERATIVE DIAGNOSIS: Incarcerated incisional hernia POSTOPERATIVE DIAGNOSIS: Same PROCEDURE: Incarcerated incisional hernia repair with mesh SURGEON: Jennifer EBL: Minimal ANESTHESIA: Gen. COMPLICATIONS: None OPERATIVE PROCEDURE: Patient placed on the operating table in the supine po sition. Abdomen was prepped and draped in usual sterile fashion. The previous incision was re-incised superiorly. Dissection through the subcutaneous tissues took place using electrocautery. A moderate size hernia was identified. The hernia sac was carefully dissected down to the level of the fascia where it was excised. The patient had a single defect measuring 4 x 2 cm. The fascia was circumferentially freed up. The adhesions to the undersurface of the fascia were also lysed. The bowel present within the hernia upon initial evaluation was viable. Once we had adequate dissection and space the 6.4 cm ventral X mesh was placed beneath the fascia and sutured to the fascia using trans-fascial 0 Ethibond sutures. Following that the midline fascia was reapproximated using interrupted horizontal mattress 0 Ethibond sutures. The folding edge was also tacked down using interrupted 0 Ethibond sutures. A drain was placed anterior to the fascial closure exiting through the left lower quadrant. This was sutured to the skin using a 3-0 silk stitch. The subcutaneous tissues were closed using 3-0 Vicryl sutures. The skin was closed using fabi. Sterile dressings were applied. DISPOSITION: Stable to recovery room
[2020-06-23] MEDS ORDERED: HYDROmorphone 0.5 MG/0.5 ML SYRINGE IVP ONE (20:40)
[2020-06-23] MEDS ORDERED: ONDANSETRON 4 MG/2 ML VIAL IVP ONE (21:34)
[2020-06-23] MEDS ORDERED: diphenhydrAMINE 50 MG/ML 1 ML VIAL IVP ONE (21:40)
[2020-06-23] MEDS ORDERED: ACETAMINOPHEN IV (For NPO) 1,000 MG in EMPTY BAG 1 BAG IVPB ONE (22:00)
[2020-06-24] MEDS: PIPERACILLIN-TAZOBACTAM 3.375 GM in SODIUM CHLORIDE 0.9% 100 ML IVPB SCH ×3 (00:17→16:13)
[2020-06-24] MEDS: KETOROLAC 15 MG/ML 1 ML VIAL IVP SCH ×4 (00:17→18:11)
[2020-06-24] MEDS: HEPARIN SODIUM,PORCINE 5,000 UNIT/ML 1 ML VIAL SQ SCH ×3 (00:17→16:13)
[2020-06-24] MEDS: HYDROcodone/APAP 5-325MG 1 EACH TAB PO PRN ×2 (03:48→14:17)
[2020-06-24 04:52] LABS: Basophils % (A) 0 %; Eosinophils # (A) 0.1 k/uL (0-0.7); Eosinophils % (A) 1 %; HCT 37.8 % (34.0-46.0); HGB 12.7 gm/dL (11.4-16.0); Lymphocytes # (A) 0.9 k/uL (1.0-4.8); Lymphocytes % (A) 9 %; MCH 31.2 pg (25.0-35.0); MCHC 33.7 g/dL (31.0-37.0); MCV 92.7 fL (80.0-100.0); Mean Platelet Volume 7.6; Monocytes # (A) 0.6 k/uL (0-1.0); Monocytes % (A) 6 %; Neutrophils # (A) 8.4 k/uL (1.3-7.7); Neutrophils % (A) 83 %; Platelet Count 229 k/uL (150-450); RBC 4.07 m/uL (3.80-5.40); RDW 13.3 % (11.5-15.5); WBC 10.2 k/uL (3.8-10.6)
[2020-06-24 05:21] LABS: Calcium 9.3 mg/dL (8.4-10.2); Potassium 3.4 mmol/L (3.5-5.1)
[2020-06-24] MEDS: PANTOPRAZOLE 40 MG/10 ML VIAL IV SCH (08:11)
[2020-06-24] MEDS: D5-0.45% NACL WITH KCL 20MEQ/L 1,000 ML IV SCH ×3 (10:46→20:22)
--- NOTE | 2020-06-24 13:21 | P.PN ---
Subjective Progress Note Date: 06/24/20 Principal diagnosis: Incarcerated incisional Patient doing better today. Pain is improved. DOLORES serosanguineous. She is afebrile. White blood cell count 10.2. Objective - Vital Signs Vital signs: Vital Signs Temp 97.9 F 06/24/20 11:42 Pulse 71 06/24/20 11:42 Resp 18 06/24/20 11:42 BP 100/72 06/24/20 11:42 Pulse Ox 92 L 06/24/20 11:42 Intake & Output 06/23/20 06/24/20 06/24/20 18:59 06:59 18:59 Intake Total 1500 Output Total 680 Balance 820 Weight 102.058 kg 102.058 kg Intake: IV 1500 Output: Drainage 30 Left Lower Abdomen 30 Urine 600 Estimated Blood Loss 50 Other: Voiding Method Toilet - Exam Abdomen: Soft, nondistended, incision clean and dry - Labs CBC & Chem 7: 06/24/20 04:38 06/24/20 04:38 Labs: Abnormal Lab Results - Last 24 Hours (Table) 06/23/20 06/23/20 06/23/20 Range/Units 12:37 12:37 12:37 Neutrophils # (1.3-7.7) k/uL Lymphocytes # (1.0-4.8) k/uL Sodium 135 L (137-145) mmol/L Potassium (3.5-5.1) mmol/L Glucose 140 H (74-99) mg/dL Plasma Lactic Acid Satya 2.7 H* (0.7-2.0) mmol/L Calcium 11.4 H (8.4-10.2) mg/dL Total Bilirubin 1.9 H (0.2-1.3) mg/dL AST 58 H (14-36) U/L ALT 39 H (4-34) U/L Total Protein 8.7 H (6.3-8.2) g/dL Urine Appearance Cloudy H (Clear) Urine Protein 1+ H (Negative) Urine Blood Moderate H (Negative) Urine Bilirubin 1+ H (Negative) Ur Leukocyte Esterase Moderate H (Negative) Urine RBC 6 H (0-5) /hpf Urine WBC 22 H (0-5) /hpf Ur Squamous Epith Cells 7 H (0-4) /hpf Urine Bacteria Occasional H (None) /hpf Urine Mucus Moderate H (None) /hpf 06/24/20 06/24/20 Range/Units 04:38 04:38 Neutrophils # 8.4 H (1.3-7.7) k/uL Lymphocytes # 0.9 L (1.0-4.8) k/uL Sodium 135 L (137-145) mmol/L Potassium 3.4 L (3.5-5.1) mmol/L Glucose 135 H (74-99) mg/dL Plasma Lactic Acid Satya (0.7-2.0) mmol/L Calcium (8.4-10.2) mg/dL Total Bilirubin (0.2-1.3) mg/dL AST (14-36) U/L ALT (4-34) U/L Total Protein (6.3-8.2) g/dL Urine Appearance (Clear) Urine Protein (Negative) Urine Blood (Negative) Urine Bilirubin (Negative) Ur Leukocyte Esterase (Negative) Urine RBC (0-5) /hpf Urine WBC (0-5) /hpf Ur Squamous Epith Cells (0-4) /hpf Urine Bacteria (None) /hpf Urine Mucus (None) /hpf Microbiology - Last 24 Hours (Table) 06/23/20 12:37 Urine Culture - Preliminary Urine,Voided Assessment and Plan (1) Incarcerated incisional hernia Narrative/Plan: Patient doing well at this time. Continue advancing diet as tolerated. Monitor DOLORES and incision site. Anticipate discharge tomorrow. Current Visit: Yes Status: Acute Code(s): K43.0 - INCISIONAL HERNIA WITH OBSTRUCTION, WITHOUT GANGRENE SNOMED Code(s): 986688155
[2020-06-25] MEDS: PIPERACILLIN-TAZOBACTAM 3.375 GM in SODIUM CHLORIDE 0.9% 100 ML IVPB SCH ×3 (00:35→16:45)
[2020-06-25] MEDS: HEPARIN SODIUM,PORCINE 5,000 UNIT/ML 1 ML VIAL SQ SCH ×3 (00:36→16:46)
[2020-06-25] MEDS: KETOROLAC 15 MG/ML 1 ML VIAL IVP SCH ×4 (00:39→16:46)
[2020-06-25] MEDS: D5-0.45% NACL WITH KCL 20MEQ/L 1,000 ML IV SCH ×3 (06:16→16:58)
--- NOTE | 2020-06-25 06:37 | P.CONS ---
History of Present Illness - Reason for Consult Consult date: 06/24/20 Medical management Requesting physician: Ronald Rodriguez - Chief Complaint Incarcerated incisional hernia repair. - History of Present Illness This is a 64 year old female with a previous medical history significant for hypertension and hypertensive cardiovascular disease, hyperlipidemia, obesity and a prior history of severe diverticulitis with perforation and abscess fo rmation back in 2017 with partial small and large bowel resection with a follow up colonoscopy in 2018 that was fine, this has left her with incisional hernia, patient presented to the emergency department at [facility] yesterday with increased abdominal pain and nausea, she described her pain as gas pain, was burping and passing gas only, this started few days back and she thought that she had a n episode of diverticulitis, but her pain got bad to the degree that she had to come to the hospital , underwent CT scan of the abdomen and pelvis that showed incarcerated hernia and she was taken to the OR by Jennifer Giordano yesterday and she underwent incarcerated incisional hernia repair with Mesh, and she was admitted to the hospital and I was asked to see her for medical management, she was sitting up in bed in minimal distress, she has less pain , taking ice chips, a bit hypotensive without chest pain or dizziness, no nausea or vomiting, we elected to hold off her hypertension meds for 24 hours, we will continue to monitor Blood pressure very closely and we will continue with current IVF and pain management, she was instructed to use the incentive spirometer to reduce the incidence of atelectasis and hospital acquired pneumonia. Review of Systems Constitutional: Denies anorexia, Denies chronic pain, Denies lethargy, Denies malaise, Denies weakness Eyes: denies blurred vision, denies bulging eye, denies decreased vision Ears, nose, mouth and throat: Denies dysphagia, Denies neck lump, Denies sore throat Cardiovascular: Denies chest pain, Denies decreased exercise tolerance, Denies dyspnea on exertion, Denies lightheadedness, Denies rapid heart beat, Denies sh ortness of breath, Denies syncope Respiratory: Denies congestion, Denies cough with sputum, Denies home oxygen, Denies sleep apnea, Denies snoring, Denies wheezing Gastrointestinal: Reports abdominal pain, Reports diarrhea, Reports nausea, Denies bloating, Denies BRBPR, Denies heartburn, Denies hematemesis, Denies loss of appetite, Denies melena, Denies vomiting Genitourinary: Denies dysuria, Denies nocturia Menstruation: Reports postmenopausal Musculoskeletal: Denies myalgias Musculoskeletal: absent: ankle pain, ankle stiffness, ankle swelling, elbow pain, elbow stiffness, elbow swelling, foot pain, foot stiffness, foot swelling, hand pain, hand stiffness, hand swelling, hip pain, hip stiffness, hip swelling, knee pain, knee stiffness, knee swelling, shoulder pain, shoulder stiffness, shoulder swelling, wrist pain, wrist stiffness, wrist swelling Integumentary: Reports wounds (abdominal wound is covered with dressing and there is DOLORES drain in the left lower quadrant.), Denies pruritus, Denies rash Neurological: Denies numbness, Denies weakness Psychiatric: Denies anxiety, Denies depression Endocrine: Denies fatigue, Denies weight change Past Medical History Past Medical History: Hyperlipidemia, Hypertension, Liver Disease, Osteoarthritis (OA) Additional Past Medical History / Comment(s): HX OF DIVERTICULITIS WITH ABCESS PER PATIENT, Heart Murmer. History of Any Multi-Drug Resistant Organisms: None Reported Past Surgical History: Bowel Resection, Breast Surgery Additional Past Surgical History / Comment(s): BREAST BIOPSY, TOOTH EXTRACTION, D&C, colonoscopy in 2018 Past Anesthesia/Blood Transfusion Reactions: No Reported Reaction Past Psychological History: No Psychological Hx Reported Smoking Status: Never smoker Past Alcohol Use History: Occasional Past Drug Use History: None Reported - Past Family History Mother Family Medical History: Coronary Artery Disease (CAD), Hypertension (Mother at the age of 92 from CAD and had hypertension.) Father Family Medical History: Coronary Artery Disease (CAD) (Father at the age of 78 from CABG x3 and had kidney stone and was shot in head during war) Brother(s) Family Medical History: Myocardial Infarction (IL) (Patient had 2 brothers one from [place]and the other one had an IL with cardiac arrest post ablation of Ventricular tachycardia.) Sister(s) Family Medical History: Osteoarthritis (OA) (patient has 2 sisters with OA post hip replacement) Additional Family Medical History / Comment(s): Patient has no kids. Medications and Allergies Home Medications Medication Instructions Recorded Confirmed Type atenoloL [Tenormin] 50 mg PO DAILY 10/03/15 06/23/20 History Triamterene-Hctz 37.5-25Mg 0.5 tab PO Q48H 10/04/16 06/23/20 History [Maxzide 37.5-25] Multivitamins, Thera [Multivitamin 1 tab PO DAILY 04/01/17 06/23/20 History (formulary)] Vitamin B Complex 1 each PO DAILY 08/22/17 06/23/20 History Biotin 5 mg PO DAILY 06/23/20 06/23/20 History Hydrocodone/Acetaminophen [[place] 1 tab PO Q6HR PRN 3 Days #12 tab 06/24/20 Rx 5-325] Allergies Allergy/AdvReac Type Severity Reaction Status Date / Time adhesive tape Allergy RED SKIN Verified 06/23/20 13:59 WITH ADHESIVE TAPE Latex, Natural Rubber Allergy Unknown Verified 06/23/20 13:59 Physical Exam Vitals: Vital Signs Temp Pulse Pulse Pulse Resp BP BP 06/24/20 04:19 82 103/57 06/24/20 01:00 61 16 93/56 06/24/20 00:00 93 103/69 06/23/20 23:30 70 102/66 06/23/20 23:00 73 105/69 06/23/20 22:45 68 117/73 06/23/20 22:30 67 113/74 06/23/20 22:20 98.4 F 74 16 111/62 06/23/20 22:15 98.4 F 69 16 111/62 06/23/20 21:35 90 18 120/77 06/23/20 21:16 92 18 117/55 06/23/20 21:01 82 16 119/85 06/23/20 20:46 76 16 132/66 06/23/20 20:31 99 F 88 11 L 123/63 06/23/20 17:52 80 18 125/81 06/23/20 12:01 98.4 F 107 H 18 155/82 Pulse Ox 06/24/20 04:19 93 L 06/24/20 01:00 94 L 06/24/20 00:00 93 L 06/23/20 23:30 92 L 06/23/20 23:00 94 L 06/23/20 22:45 95 06/23/20 22:30 96 06/23/20 22:20 96 06/23/20 22:15 85 L 06/23/20 21:35 96 06/23/20 21:16 98 06/23/20 21:01 97 06/23/20 20:46 97 06/23/20 20:31 94 L 06/23/20 17:52 96 06/23/20 12:01 95 Intake and Output 06/23/20 06/24/20 06/24/20 22:59 06:59 14:59 Intake Total 1500 Output Total 350 330 Balance 1150 -330 Intake: IV 1500 Output: Drainage 30 Left Lower Abdomen 30 Urine 300 300 Estimated Blood Loss 50 Other: Voiding Method Toilet Weight 102.058 kg Physical examination: HEENT: head is atraumatic normocephalic pupils were equal round reactive to light and accommodation extra ocular muscle movement were intact, mucous membranes of the mouth are somewhat dry. Neck: supple, no JVP. Chest: decrease breath sounds at the bases with few ronchi, no expiratory wheezes, no intercostal retraction. Heart: first heart sound is depressed, second heart sound is normal there is no gallop or murmur. Abdomen : there is incision midline covered with dressing, there is left lower quadrant DOLORES drain, non sepcific tenderness, positive bowel sounds. Extremities: there is no edema or calf tenderness, DP +2 bilaterally. Neurologic examination: patient is awake , alert and oriented X 3 CN II-XII are grossly intact.muscle power 5/5 in upper and lower extremities bilaterally. Results CBC & Chem 7: 06/25/20 07:14 06/25/20 07:14 Labs: Abnormal Lab Results - Last 24 Hours (Table) 06/23/20 06/23/20 06/23/20 Range/Units 12:37 12:37 12:37 WBC 15.4 H (3.8-10.6) k/uL Neutrophils # 13.4 H (1.3-7.7) k/uL Lymphocytes # (1.0-4.8) k/uL Sodium 135 L (137-145) mmol/L Potassium (3.5-5.1) mmol/L Glucose 140 H (74-99) mg/dL Plasma Lactic Acid Satya (0.7-2.0) mmol/L Calcium 11.4 H (8.4-10.2) mg/dL Total Bilirubin 1.9 H (0.2-1.3) mg/dL AST 58 H (14-36) U/L ALT 39 H (4-34) U/L Total Protein 8.7 H (6.3-8.2) g/dL Urine Appearance Cloudy H (Clear) Urine Protein 1+ H (Negative) Urine Blood Moderate H (Negative) Urine Bilirubin 1+ H (Negative) Ur Leukocyte Esterase Moderate H (Negative) Urine RBC 6 H (0-5) /hpf Urine WBC 22 H (0-5) /hpf Ur Squamous Epith Cells 7 H (0-4) /hpf Urine Bacteria Occasional H (None) /hpf Urine Mucus Moderate H (None) /hpf 06/23/20 06/24/20 06/24/20 Range/Units 12:37 04:38 04:38 WBC (3.8-10.6) k/uL Neutrophils # 8.4 H (1.3-7.7) k/uL Lymphocytes # 0.9 L (1.0-4.8) k/uL Sodium 135 L (137-145) mmol/L Potassium 3.4 L (3.5-5.1) mmol/L Glucose 135 H (74-99) mg/dL Plasma Lactic Acid Satya 2.7 H* (0.7-2.0) mmol/L Calcium (8.4-10.2) mg/dL Total Bilirubin (0.2-1.3) mg/dL AST (14-36) U/L ALT (4-34) U/L Total Protein (6.3-8.2) g/dL Urine Appearance (Clear) Urine Protein (Negative) Urine Blood (Negative) Urine Bilirubin (Negative) Ur Leukocyte Esterase (Negative) Urine RBC (0-5) /hpf Urine WBC (0-5) /hpf Ur Squamous Epith Cells (0-4) /hpf Urine Bacteria (None) /hpf Urine Mucus (None) /hpf Microbiology - Last 24 Hours (Table) 06/23/20 12:37 Urine Culture - Preliminary Urine,Voided Assessment and Plan Assessment: Assessment and plan: 1. POD #1 S/P incisional hernia repair with mesh. we will continue with current IVF , pain management and increase activity and she was instructed to use the incentive spirometer to reduce the incidence of atelectasis and HAP, we will continue to follow up with the patient. 2. Transient hypotension. we will continue with IVF and hold off Atenolol and Dyazide for now. 3. Hypokalemia. post replacement. 4. Hypertension and hypertensive cardiovascular disease. we will continue with monitoring and hold off Atenolol and dyazide for 24 hours. 5. Hyperlipidemia. will need outpatient fasting lipid profile. 6. Hepatomegaly likely related to NAFLD. we will continue with monitoring and weight loss. 7. Obesity with possible SAM. she will need a sleep study as outpatient. 8. Mild hyponatremia due to hypovolemia. we will continue with IVF and repeat CMP in am. 9. DVT prophylaxis. we will continue with Heparin 5000 units SC Q 8 hours. 10. GI prophylaxis. we will continue with Protonix 40 mg IVP daily. 11. Thank you for the consult we will follow the patient with you.
[2020-06-25 07:35] LABS: Basophils % (A) 0 %; Eosinophils # (A) 0.2 k/uL (0-0.7); Eosinophils % (A) 3 %; HCT 36.4 % (34.0-46.0); HGB 11.5 gm/dL (11.4-16.0); Lymphocytes # (A) 1.1 k/uL (1.0-4.8); Lymphocytes % (A) 17 %; MCH 29.8 pg (25.0-35.0); MCHC 31.5 g/dL (31.0-37.0); MCV 94.5 fL (80.0-100.0); Mean Platelet Volume 7.7; Monocytes # (A) 0.4 k/uL (0-1.0); Monocytes % (A) 6 %; Neutrophils # (A) 4.9 k/uL (1.3-7.7); Neutrophils % (A) 73 %; Platelet Count 196 k/uL (150-450); RBC 3.86 m/uL (3.80-5.40); WBC 6.6 k/uL (3.8-10.6)
[2020-06-25 07:42] LABS: ALT 20 U/L (4-34); AST 25 U/L (14-36); African American GFR (CKD) >90 (>60 ml/min/1.73 sqM); Albumin 3.2 g/dL (3.5-5.0); Alkaline Phosphatase 68 U/L (38-126); Anion Gap 5 mmol/L; Blood Urea Nitrogen 9 mg/dL (7-17); Calcium 8.6 mg/dL (8.4-10.2); Carbon Dioxide 25 mmol/L (22-30); Chloride 106 mmol/L (98-107); Glucose 129 mg/dL (74-99); Magnesium 1.9 mg/dL (1.6-2.3); Non-African American GFR(CKD) 86 (>60 ml/min/1.73 sqM); Potassium 3.4 mmol/L (3.5-5.1); Sodium 136 mmol/L (137-145); Total Bilirubin 0.8 mg/dL (0.2-1.3); Total Protein 5.9 g/dL (6.3-8.2)
[2020-06-25] MEDS: PANTOPRAZOLE 40 MG/10 ML VIAL IV SCH (08:53)
[2020-06-25] MEDS ORDERED: POTASSIUM CHLORIDE ER 20 MEQ TAB.ER PO STA (09:52)
--- NOTE | 2020-06-25 09:56 | P.PN ---
Subjective Progress Note Date: 06/25/20 This is a 64 year old female with a previous medical history significant for hypertension and hypertensive cardiovascular disease, hyperlipidemia, obesity and a prior history of severe diverticulitis with perforation and abscess formation back in 2017 with partial small and large bowel resection with a fo llow up colonoscopy in 2018 that was fine, this has left her with incisional hernia, patient presented to the emergency department at [facility] yesterday with increased abdominal pain and nausea, she described her pain as gas pain, was burping and passing gas only, this started few days back and she thought that she had a n episode of diverticulitis, but her pain got bad to the degree that she had to come to the hospital , underwent CT scan of the abdomen and pelvis that showed incarcerated hernia and she was taken to the OR by Jennifer Giordano yesterday and she underwent incarcerated incisional hernia repair with Mesh, and she was admitted to the hospital and I was asked to see her for med ical management, she was sitting up in bed in minimal distress, she has less pain , taking ice chips, a bit hypotensive without chest pain or dizziness, no nausea or vomiting, we elected to hold off her hypertension meds for 24 hours, we will continue to monitor Blood pressure very closely and we will continue with current IVF and pain management, she was instructed to use the incentive spirometer to reduce the incidence of atelectasis and hospital acquired pneumonia. 06/25: Patient is sitting up in chair complaining of abdominal pain, no nausea or vomiting at this time, she is tolerating her clear liquid diet very well, she is having some bleeding while she was wiping herself I believe is due to hemorrhoids bleed, patient denies any headache at this time, she is complaining of some irregularities, she appears a bit short of breath, she was started on atenolol 50 mg orally once every day, her potassium was slightly lower we'll replace that, we'll obtain portable chest 3 for evaluation of her lungs, patient was instructed to continue to use incentive spirometer and increase her activity at this point in time, we'll monitor her CBC her hemoglobin appears to be stable at this point in time, continue with current management with DVT prophylaxis, continue with IV antibiotic, we will advance her diet per surgery. Objective - Vital Signs Vital signs: Vital Signs Temp 97.9 F 06/25/20 08:20 Pulse 72 06/25/20 08:20 Resp 16 06/25/20 08:20 BP 115/75 06/25/20 08:20 Pulse Ox 95 06/25/20 08:20 Intake & Output 06/24/20 06/25/20 06/25/20 18:59 06:59 18:59 Intake Total 300 Output Total 970 600 Balance -670 -600 Intake: Oral 300 Output: Drainage 20 Left Lower Abdomen 20 Urine 950 600 Other: Voiding Method Toilet # Voids 1 1 - Exam Review of Systems Constitutional: Denies anorexia, Denies chronic pain, Denies lethargy, Denies malaise, Denies weakness Eyes: denies blurred vision, denies bulging eye, denies decreased vision Ears, nose, mouth and throat: Denies dysphagia, Denies neck lump, Denies sore t hroat Cardiovascular: Denies chest pain, Denies decreased exercise tolerance, Denies dyspnea on exertion, Denies lightheadedness, Denies rapid heart beat, Denies shortness of breath, Denies syncope Respiratory: Denies congestion, Denies cough with sputum, Denies home oxygen, Denies sleep apnea, Denies snoring, Denies wheezing Gastrointestinal: Reports abdominal pain, Reports diarrhea, Reports nausea, Denies bloating, Denies BRBPR, Denies heartburn, Denies hematemesis, Denies loss of appetite, Denies melena, Denies vomiting Genitourinary: Denies dysuria, Denies nocturia Menstruation: Reports postmenopausal Musculoskeletal: Denies myalgias Musculoskeletal: absent: ankle pain, ankle stiffness, ankle swelling, elbow vipul n, elbow stiffness, elbow swelling, foot pain, foot stiffness, foot swelling, hand pain, hand stiffness, hand swelling, hip pain, hip stiffness, hip swelling, knee pain, knee stiffness, knee swelling, shoulder pain, shoulder stiffness, shoulder swelling, wrist pain, wrist stiffness, wrist swelling Integumentary: Reports wounds (abdominal wound is covered with dressing and there is DOLORES drain in the left lower quadrant.), Denies pruritus, Denies rash Neurological: Denies numbness, Denies weakness Psychiatric: Denies anxiety, Denies depression Endocrine: Denies fatigue, Denies weight change Physical examination: HEENT: head is atraumatic normocephalic pupils were equal round reactive to light and accommodation extra ocular muscle movement were intact, mucous membranes of the mouth are somewhat dry. Neck: supple, no JVP. Chest: decrease breath sounds at the bases with few ronchi, no expiratory wheezes, no intercostal retraction. Heart: first heart sound is depressed, second heart sound is normal there is no gallop or murmur. Abdomen : there is incision midline covered with dressing, there is left lower quadrant DOLORES drain, non sepcific tenderness, positive bowel sounds. Extremities: there is no edema or calf tenderness, DP +2 bilaterally. Neurologic examination: patient is awake , alert and oriented X 3 CN II-XII are grossly intact.muscle power 5/5 in upper and lower extremities bilaterally. - Labs CBC & Chem 7: 06/25/20 07:14 06/25/20 07:14 Labs: Abnormal Lab Results - Last 24 Hours (Table) 06/25/20 Range/Units 07:14 Sodium 136 L (137-145) mmol/L Potassium 3.4 L (3.5-5.1) mmol/L Glucose 129 H (74-99) mg/dL Total Protein 5.9 L (6.3-8.2) g/dL Albumin 3.2 L (3.5-5.0) g/dL Assessment and Plan Assessment: Assessment and plan: 1. POD #2 S/P incisional hernia repair with mesh. we will continue with current IVF , pain management and increase activity and she was instructed to use the incentive spirometer to reduce the incidence of atelectasis and HAP, we will continue to follow up with the patient, portable chest 3 would be done, we'll continue Zosyn 3.375 g IV piggyback every 8 hours, monitor the patient very closely, patient is tolerating her liquid diet, advance if okay with surgery. 2. Transient hypotension. we will continue with IVF and hold off Atenolol and Dyazide for now. 3. Hypokalemia. post replacement. Patient will be given potassium chloride 40 mg orally once . 4. Hypertension and hypertensive cardiovascular disease. we will restart atenolol 50 minute gram orally once every day continue to hold off Dyazide. 5. Hyperlipidemia. will need outpatient fasting lipid profile. 6. Hepatomegaly likely related to NAFLD. we will continue with monitoring and weight loss. 7. Obesity with possible SAM. she will need a sleep study as outpatient. 8. Mild hyponatremia due to hypovolemia. we will continue with IVF and repeat CMP in am. 9. DVT prophylaxis. we will continue with Heparin 5000 units SC Q 8 hours. 10. GI prophylaxis. we will continue with Protonix 40 mg IVP daily. 11. Possible hemorrhoidal bleed, monitor the patient's CBC with 4 hours.
--- NOTE | 2020-06-25 10:49 | XR ---
EXAMINATION TYPE: XR chest 1V portable DATE OF EXAM: 06/25/2020 CLINICAL HISTORY: cough. TECHNIQUE: Portable frontal view of the chest. COMPARISON: None FINDINGS: Borderline cardiomegaly. Mediastinal silhouette normal. Central pulmonary vascular congesti on. Small right pleural effusion. No pneumothorax. The osseous structures are intact. IMPRESSION: Borderline cardiomegaly, pulmonary vascular congestion, and small right pleural effusion . Findings may represent CHF.
--- NOTE | 2020-06-25 11:57 | P.PN ---
Progress Note - Text Progress Note Date: 06/25/20 The patient has complaints of incisional pain. She still does not feel well. On exam vital signs are stable. Abdomen soft. Incision sites clean dry intact. Status post repair of incisional hernia. Patient was discharged home in the a.m.
[2020-06-25] MEDS: HYDROcodone/APAP 5-325MG 1 EACH TAB PO PRN (12:06)
[2020-06-25] MEDS: atenoloL 50 MG TAB PO SCH (12:08)
[2020-06-26] MEDS: KETOROLAC 15 MG/ML 1 ML VIAL IVP SCH ×6 (00:20→22:57)
[2020-06-26] MEDS: PIPERACILLIN-TAZOBACTAM 3.375 GM in SODIUM CHLORIDE 0.9% 100 ML IVPB SCH ×2 (00:20→09:14)
[2020-06-26] MEDS: HEPARIN SODIUM,PORCINE 5,000 UNIT/ML 1 ML VIAL SQ SCH ×4 (00:22→23:42)
[2020-06-26] MEDS ORDERED: ONDANSETRON 4 MG/2 ML VIAL IVP PRN (01:26)
[2020-06-26] MEDS: D5-0.45% NACL WITH KCL 20MEQ/L 1,000 ML IV SCH ×2 (04:30→09:55)
[2020-06-26] MEDS: atenoloL 50 MG TAB PO SCH (09:00)
[2020-06-26] MEDS: PANTOPRAZOLE 40 MG TABLET PO SCH (09:00)
[2020-06-26] MEDS: DOCUSATE 100 MG CAP PO SCH (09:45)
[2020-06-26] MEDS ORDERED: FUROSEMIDE 10 MG/ML 2 ML VIAL IV ONE (09:57)
[2020-06-26] MEDS ORDERED: TRIAMTERENE-HCTZ 37.5-25MG 1 EACH TAB PO SCH (10:00)
--- NOTE | 2020-06-26 10:00 | P.PN ---
Subjective Progress Note Date: 06/26/20 This is a 64 year old female with a previous medical history significant for hypertension and hypertensive cardiovascular disease, hyperlipidemia, obesity and a prior history of severe diverticulitis with perforation and abscess formation back in 2017 with partial small and large bowel resection with a fo llow up colonoscopy in 2018 that was fine, this has left her with incisional hernia, patient presented to the emergency department at [facility] yesterday with increased abdominal pain and nausea, she described her pain as gas pain, was burping and passing gas only, this started few days back and she thought that she had a n episode of diverticulitis, but her pain got bad to the degree that she had to come to the hospital , underwent CT scan of the abdomen and pelvis that showed incarcerated hernia and she was taken to the OR by Jennifer Giordano yesterday and she underwent incarcerated incisional hernia repair with Mesh, and she was admitted to the hospital and I was asked to see her for med ical management, she was sitting up in bed in minimal distress, she has less pain , taking ice chips, a bit hypotensive without chest pain or dizziness, no nausea or vomiting, we elected to hold off her hypertension meds for 24 hours, we will continue to monitor Blood pressure very closely and we will continue with current IVF and pain management, she was instructed to use the incentive spirometer to reduce the incidence of atelectasis and hospital acquired pneumonia. 06/25: Patient is sitting up in chair complaining of abdominal pain, no nausea or vomiting at this time, she is tolerating her clear liquid diet very well, she is having some bleeding while she was wiping herself I believe is due to hemorrhoids bleed, patient denies any headache at this time, she is complaining of some irregularities, she appears a bit short of breath, she was started on atenolol 50 mg orally once every day, her potassium was slightly lower we'll replace that, we'll obtain portable chest 3 for evaluation of her lungs, patient was instructed to continue to use incentive spirometer and increase her activity at this point in time, we'll monitor her CBC her hemoglobin appears to be stable at this point in time, continue with current management with DVT prophylaxis, continue with IV antibiotic, we will advance her diet per surgery. 06/26: Patient is feeling a bit better today she did not have a bowel movement and she is passing gas, she is tolerating her diet well, she continued to have some abdominal pain in her incisional area, she continues to have the DOLORES drain in place, less than 20 mL of serosanguineous material coming out, she denies any chest pain or shortness breath, she has minimal coughing no hemoptysis, she underwent chest x-ray yesterday that did show minimal thyromegaly and congestive heart failure, we will Hep-Lock her IV, we'll give the patient 1 dose of Lasix 20 mg IV push 1, we'll continue to monitor the patient very closely hopefully keep her in the hospital for another 24 hours would be better for her. Objective - Vital Signs Vital signs: Vital Signs Temp 99 F 06/25/20 23:00 Pulse 82 06/25/20 23:00 Resp 18 06/25/20 23:00 BP 117/73 06/25/20 23:00 Pulse Ox 99 06/25/20 23:00 Intake & Output 06/25/20 06/25/20 06/26/20 06:59 18:59 06:59 Output Total 600 320 Balance -600 -320 Output: Drainage 20 Left Lower Abdomen 20 Urine 600 300 Other: Voiding Method Toilet # Voids 1 2 2 - Exam Review of Systems Constitutional: Denies anorexia, Denies chronic pain, Denies lethargy, Denies malaise, Denies weakness Eyes: denies blurred vision, denies bulging eye, denies decreased vision Ears, nose, mouth and throat: Denies dysphagia, Denies neck lump, Denies sore throat Cardiovascular: Denies chest pain, Denies decreased exercise tolerance, Denies dyspnea on exertion, Denies lightheadedness, Denies rapid heart beat, Denies shortness of breath, Denies syncope Respiratory: Denies congestion, Denies cough with sputum, Denies home oxygen, Denies sleep apnea, Denies snoring, Denies wheezing Gastrointestinal: Reports abdominal pain, Reports diarrhea, Reports nausea, Denies bloating, Denies BRBPR, Denies heartburn, Denies hematemesis, Denies loss of appetite, Denies melena, Denies vomiting Genitourinary: Denies dysuria, Denies nocturia Menstruation: Reports postmenopausal Musculoskeletal: Denies myalgias Musculoskeletal: absent: ankle pain, ankle stiffness, ankle swelling, elbow pain, elbow stiffness, elbow swelling, foot pain, foot stiffness, foot swelling, hand pain, hand stiffness, hand swelling, hip pain, hip stiffness, hip swelling, knee pain, knee stiffness, knee swelling, shoulder pain, shoulder stiffness, shoulder swelling, wrist pain, wrist stiffness, wrist swelling Integumentary: Reports wounds (abdominal wound is covered with dressing and there is DOLORES drain in the left lower quadrant.), Denies pruritus, Denies rash Neurological: Denies numbness, Denies weakness Psychiatric: Denies anxiety, Denies depression Endocrine: Denies fatigue, Denies weight change Physical examination: HEENT: head is atraumatic normocephalic pupils were equal round reactive to light and accommodation extra ocular muscle movement were intact, mucous membranes of the mouth are somewhat dry. Neck: supple, no JVP. Chest: decrease breath sounds at the bases with few ronchi, no expiratory wheezes, no intercostal retraction. Heart: first heart sound is depressed, second heart sound is normal there is no gallop or murmur. Abdomen : there is incision midline covered with dressing, there is left lower quadrant DOLORES drain, non sepcific tenderness, positive bowel sounds. Extremities: there is no edema or calf tenderness, DP +2 bilaterally. Neurologic examination: patient is awake , alert and oriented X 3 CN II-XII are grossly intact.muscle power 5/5 in upper and lower extremities bilaterally. - Labs CBC & Chem 7: 06/25/20 07:14 06/25/20 07:14 Labs: Abnormal Lab Results - Last 24 Hours (Table) 06/25/20 Range/Units 07:14 Sodium 136 L (137-145) mmol/L Potassium 3.4 L (3.5-5.1) mmol/L Glucose 129 H (74-99) mg/dL Total Protein 5.9 L (6.3-8.2) g/dL Albumin 3.2 L (3.5-5.0) g/dL Microbiology - Last 24 Hours (Table) 06/23/20 12:37 Urine Culture - Final Urine,Voided Enterococcus faecalis Assessment and Plan Assessment: Assessment and plan: 1. POD #2 S/P incisional hernia repair with mesh. we will continue with current IVF , pain management and increase activity and she was instructed to use the incentive spirometer to reduce the incidence of atelectasis and HAP, we will continue to follow up with the patient, portable chest 3 would be done, we'll continue Zosyn 3.375 g IV piggyback every 8 hours, monitor the patient very closely, patient is tolerating her liquid diet, advance if okay with surgery. 2. Transient hypotension. we will continue with IVF and hold off Atenolol and Dyazide for now. 3. Hypokalemia. post replacement. Patient will be given potassium chloride 40 mg orally once . 4. Enterococcus Fecalis UTI. currently on Zosyn we will switch to Augmentin 875 mg orally bid for 10 days. 5. Hypertension and hypertensive cardiovascular disease. we will restart atenolol 50 minute gram orally once every day continue to hold off Dyazide. 6. Hyperlipidemia. will need outpatient fasting lipid profile. 7. Hepatomegaly likely related to NAFLD. we will continue with monitoring and weight loss. 8. Obesity with possible SAM. she will need a sleep study as outpatient. 9. Mild hyponatremia due to hypovolemia. we will continue with IVF and repeat CMP in am. 10. DVT prophylaxis. we will continue with Heparin 5000 units SC Q 8 hours. 11. GI prophylaxis. we will continue with Protonix 40 mg IVP daily. 12. Possible hemorrhoidal bleed, monitor the patient's CBC. 13. Mild fluid overload with right-sided pleural effusion and cardiomegaly. Discontinue IV fluid, resuscitation on her Dyazide, skin the patient Lasix 20 mg IV push 1, keep the patient the hospital for another 24 hours. 14. Home tomorrow morning.
--- NOTE | 2020-06-26 10:24 | P.PN ---
Progress Note - Text Progress Note Date: 06/26/20 Patient still has complaints of incisional pain. She says he was also states that she had some shortness of breath. She is concerned that she may have some pleural effusions for Dr. Wood. On exam vital signs are stable. Abdomen soft. Patient is not had a bowel movement yet. We plan on discharge home tomorrow. She'll receive supportive care.
[2020-06-26] MEDS: HYDROcodone/APAP 5-325MG 1 EACH TAB PO PRN (17:24)
[2020-06-26] MEDS: AMOXIC-POT CLAV 875-125MG 1 EACH TAB PO SCH (19:56)
[2020-06-27] MEDS: KETOROLAC 15 MG/ML 1 ML VIAL IVP SCH ×2 (05:33→09:24)
[2020-06-27] MEDS: HYDROcodone/APAP 5-325MG 1 EACH TAB PO PRN (05:53)
[2020-06-27] MEDS: atenoloL 50 MG TAB PO SCH (08:20)
[2020-06-27] MEDS: AMOXIC-POT CLAV 875-125MG 1 EACH TAB PO SCH (08:20)
[2020-06-27] MEDS: DOCUSATE 100 MG CAP PO SCH (08:20)
[2020-06-27] MEDS: PANTOPRAZOLE 40 MG TABLET PO SCH (08:20)
[2020-06-27] MEDS: HEPARIN SODIUM,PORCINE 5,000 UNIT/ML 1 ML VIAL SQ SCH (08:20)
--- NOTE | 2020-06-27 08:28 | P.PN ---
Subjective Progress Note Date: 06/27/20 This is a 64 year old female with a previous medical history significant for hypertension and hypertensive cardiovascular disease, hyperlipidemia, obesity and a prior history of severe diverticulitis with perforation and abscess formation back in 2017 with partial small and large bowel resection with a fo llow up colonoscopy in 2018 that was fine, this has left her with incisional hernia, patient presented to the emergency department at [facility] yesterday with increased abdominal pain and nausea, she described her pain as gas pain, was burping and passing gas only, this started few days back and she thought that she had a n episode of diverticulitis, but her pain got bad to the degree that she had to come to the hospital , underwent CT scan of the abdomen and pelvis that showed incarcerated hernia and she was taken to the OR by Jennifer Giordano yesterday and she underwent incarcerated incisional hernia repair with Mesh, and she was admitted to the hospital and I was asked to see her for med ical management, she was sitting up in bed in minimal distress, she has less pain , taking ice chips, a bit hypotensive without chest pain or dizziness, no nausea or vomiting, we elected to hold off her hypertension meds for 24 hours, we will continue to monitor Blood pressure very closely and we will continue with current IVF and pain management, she was instructed to use the incentive spirometer to reduce the incidence of atelectasis and hospital acquired pneumonia. 06/25: Patient is sitting up in chair complaining of abdominal pain, no nausea or vomiting at this time, she is tolerating her clear liquid diet very well, she is having some bleeding while she was wiping herself I believe is due to hemorrhoids bleed, patient denies any headache at this time, she is complaining of some irregularities, she appears a bit short of breath, she was started on atenolol 50 mg orally once every day, her potassium was slightly lower we'll replace that, we'll obtain portable chest 3 for evaluation of her lungs, patient was instructed to continue to use incentive spirometer and increase her activity at this point in time, we'll monitor her CBC her hemoglobin appears to be stable at this point in time, continue with current management with DVT prophylaxis, continue with IV antibiotic, we will advance her diet per surgery. 06/26: Patient is feeling a bit better today she did not have a bowel movement and she is passing gas, she is tolerating her diet well, she continued to have some abdominal pain in her incisional area, she continues to have the DOLORES drain in place, less than 20 mL of serosanguineous material coming out, she denies any chest pain or shortness breath, she has minimal coughing no hemoptysis, she underwent chest x-ray yesterday that did show minimal thyromegaly and congestive heart failure, we will Hep-Lock her IV, we'll give the patient 1 dose of Lasix 20 mg IV push 1, we'll continue to monitor the patient very closely hopefully keep her in the hospital for another 24 hours would be better for her. 06/27: Patient sitting up into the emergency better she denies any chest pain or shortness breath, she had a good bowel movement today, she has no abdominal pain, she is tolerating her diet very well, she will be discharged home today in follow-up with general surgery as well as myself in about a week from now. Objective - Vital Signs Vital signs: Vital Signs Temp 98.2 F 06/26/20 23:00 Pulse 77 06/26/20 23:00 Resp 18 06/26/20 23:00 BP 123/73 06/26/20 23:00 Pulse Ox 95 06/26/20 23:00 Intake & Output 06/26/20 06/26/20 06/27/20 06:59 18:59 06:59 Intake Total 200 Output Total 15 Balance -15 200 Intake: Oral 200 Output: Drainage 15 Left Lower Abdomen 15 Other: Voiding Method Toilet # Voids 2 4 1 - Exam Review of Systems Constitutional: Denies anorexia, Denies chronic pain, Denies lethargy, Denies malaise, Denies weakness Eyes: denies blurred vision, denies bulging eye, denies decreased vision Ears, nose, mouth and throat: Denies dysphagia, Denies neck lump, Denies sore throat Cardiovascular: Denies chest pain, Denies decreased exercise tolerance, Denies dyspnea on exertion, Denies lightheadedness, Denies rapid heart beat, Denies shortness of breath, Denies syncope Respiratory: Denies congestion, Denies cough with sputum, Denies home oxygen, Denies sleep apnea, Denies snoring, Denies wheezing Gastrointestinal: Reports abdominal pain, Reports diarrhea, Reports nausea, Denies bloating, Denies BRBPR, Denies heartburn, Denies hematemesis, Denies loss of appetite, Denies melena, Denies vomiting Genitourinary: Denies dysuria, Denies nocturia Menstruation: Reports postmenopausal Musculoskeletal: Denies myalgias Musculoskeletal: absent: ankle pain, ankle stiffness, ankle swelling, elbow pain, elbow stiffness, elbow swelling, foot pain, foot stiffness, foot swelling, hand pain, hand stiffness, hand swelling, hip pain, hip stiffness, hip swelling, knee pain, knee stiffness, knee swelling, shoulder pain, shoulder stiffness, shoulder swelling, wrist pain, wrist stiffness, wrist swelling Integumentary: Reports wounds (abdominal wound is covered with dressing and there is DOLORES drain in the left lower quadrant.), Denies pruritus, Denies rash Neurological: Denies numbness, Denies weakness Psychiatric: Denies anxiety, Denies depression Endocrine: Denies fatigue, Denies weight change Physical examination: HEENT: head is atraumatic normocephalic pupils were equal round reactive to light and accommodation extra ocular muscle movement were intact, mucous membranes of the mouth are somewhat dry. Neck: supple, no JVP. Chest: decrease breath sounds at the bases with few ronchi, no expiratory w heezes, no intercostal retraction. Heart: first heart sound is depressed, second heart sound is normal there is no gallop or murmur. Abdomen : there is incision midline covered with dressing, there is left lower quadrant DOLORES drain, non sepcific tenderness, positive bowel sounds. Extremities: there is no edema or calf tenderness, DP +2 bilaterally. Neurologic examination: patient is awake , alert and oriented X 3 CN II-XII are grossly intact.muscle power 5/5 in upper and lower extremities bilaterally. - Labs CBC & Chem 7: 06/25/20 07:14 06/25/20 07:14 Assessment and Plan Assessment: Assessment and plan: 1. POD #3 S/P incisional hernia repair with mesh. we will continue with current IVF , pain management and increase activity and she was instructed to use the incentive spirometer to reduce the incidence of atelectasis and HAP, we will continue to follow up with the patient, portable chest 3 would be done, we'll continue Zosyn 3.375 g IV piggyback every 8 hours, monitor the patient very closely, patient is tolerating her liquid diet, advance if okay with surgery. 2. Transient hypotension. resolved. 3. Hypokalemia. post replacement. 4. Enterococcus Fecalis UTI. currently on Augmentin 875 mg orally bid for 10 days. 5. Hypertension and hypertensive cardiovascular disease. we will restart a tenolol 50 minute gram orally once every day continue to hold off Dyazide. 6. Hyperlipidemia. will need outpatient fasting lipid profile. 7. Hepatomegaly likely related to NAFLD. we will continue with monitoring and weight loss. 8. Obesity with possible SAM. she will need a sleep study as outpatient. 9. Mild hyponatremia due to hypovolemia. we will continue with IVF and repeat CMP in am. 10. DVT prophylaxis. we will continue with Heparin 5000 units SC Q 8 hours. 11. GI prophylaxis. we will continue with Protonix 40 mg IVP daily. 12. Possible hemorrhoidal bleed, monitor the patient's CBC. 13. Mild fluid overload with right-sided pleural effusion and cardiomegaly. Discontinue IV fluid, resuscitation on her Dyazide, skin the patient Lasix 20 mg IV push 1, keep the patient the hospital for another 24 hours. 14. Medically stable to be discharged home.
[2020-06-27] MEDS ORDERED: NON FORMULARY DRUG (Vitamin B Complex [Vitamin B Complex] 1 EACH Capsule) PO SCH (09:00)
[2020-06-27] MEDS ORDERED: MULTIVITAMINS, THERA 1 EACH TAB PO SCH (09:00)
[2020-06-27] MEDS ORDERED: NON FORMULARY DRUG (Biotin [Biotin] 5 MG Capsule) PO SCH (09:00)
[2020-06-27 13:16] VITALS: BP 107/72; PULSE 66; RESP 22; TEMP 98.5
--- NOTE | 2020-06-27 14:02 | P.DS ---
<Genesis Ross - Last Filed: 06/27/20 13:54> Providers Expected date of discharge: 06/27/20 Hospital Course: Discharge diagnosis 1. Incarcerated incisional hernia repair with mesh 2. Enterococcus Fecalis UTI Hospital course This is a 64-year-old female who presented to the hospital complaining of abdominal pain. She had a computed tomography scan of the abdomen completed which was consistent with an incarcerated incisional hernia with mild inflammatory changes and early small bowel obstruction. Hernia was able to be partially reduce by Dr. Rodriguez and ER staff. Patient is status post incarcerated incisional hernia repair with mesh. She tolerated surgery well. She is tolerating advancement of diet. She has been up and ambulating. She's afebrile. Patient given Augmentin prescription per medicine for her UTI treatment. Patient is stable for discharge. Please refer to chart for any further details. Physician Therapeutic Radiologist note has been reviewed by physician. Signing provider agrees with the documented findings, assessment, and plan of care. Patient Condition at Discharge: Stable Plan - Discharge Summary Discharge Rx Participant: Yes New Discharge Prescriptions: New Hydrocodone/Acetaminophen [Cullom 5-325] 1 tab PO Q6HR PRN 3 Days #12 tab PRN Reason: Pain Amoxic-Pot Clav 875-125Mg [Augmentin 875-125] 1 each PO Q12HR #20 tab Docusate [Colace] 100 mg PO DAILY cap Continue atenoloL [Tenormin] 50 mg PO DAILY Triamterene-Hctz 37.5-25Mg [Maxzide 37.5-25] 0.5 tab PO Q48H Multivitamins, Thera [Multivitamin (formulary)] 1 tab PO DAILY Vitamin B Complex 1 each PO DAILY Biotin 5 mg PO DAILY Discharge Medication List atenoloL [Tenormin] 50 mg PO DAILY 10/03/15 [History] Triamterene-Hctz 37.5-25Mg [Maxzide 37.5-25] 0.5 tab PO Q48H 10/04/16 [History] Multivitamins, Thera [Multivitamin (formulary)] 1 tab PO DAILY 04/01/17 [History] Vitamin B Complex 1 each PO DAILY 08/22/17 [History] Biotin 5 mg PO DAILY 06/23/20 [History] Hydrocodone/Acetaminophen [Cullom 5-325] 1 tab PO Q6HR PRN 3 Days #12 tab 06/24/20 [Rx] Amoxic-Pot Clav 875-125Mg [Augmentin 875-125] 1 each PO Q12HR #20 tab 06/27/20 [Rx] Docusate [Colace] 100 mg PO DAILY cap 06/27/20 [Rx] Follow up Appointment(s)/Referral(s): Ronald Rodriguez MD [Medical Doctor] - 07/06/20 3:50 pm Promise Wood MD [STAFF PHYSICIAN] - 07/05/20 11:30 am Patient Instructions/Handouts: Incisional Hernia (DC) Activity/Diet/Wound Care/Special Instructions: May shower starting Saturday. Dressing may get wet, Driving after discharge if not taking Narcotics is fine. (per Dr Rodriguez) No driving while taking Cullom No lifting over 10 pounds You may shower. No soaking or tub baths Very light activity until you are reevaluated at your follow up appointment with your surgeon Keep a log of DOLORES drain output and bring with you to your follow-up appointment Milk/strip drains 2-3 times a day Discharge Disposition: HOME SELF-CARE <Ronald Rodriguez - Last Filed: 06/27/20 14:58> Providers Date of admission: 06/23/20 17:53 Attending physician: Ronald Rodriguez Consults: 06/23/20 17:53 Consult Physician Routine Consulting Provider: Promise Wood Consult Reason/Comments: medical management/clearance Do you want consulting provider notified?: Yes Primary care physician: Stated None - Discharge Diagnosis(es) (1) Incarcerated incisional hernia Current Visit: Yes Status: Acute Hospital Course: As above. Patient doing well. We'll discharge with drain in place.
--- NOTE | 2020-06-28 23:05 | CDI ---
Documentation Clarification Form Date: 06/29/2020 From: Chidi Pablo Phone: If you have a question about this query, please contact Tangela Rivas Piano Mechanic at [phone] between 8am and 5pm. Admit Date: 06/23/2020 Discharge Date: 06/27/2020 Patient Name: Waleska Rendon Visit Number: [id number] ATTENTION: The Clinical Documentation Specialists (CDI) and [facility] Coding Staff appreciate your assistance in clarifying documentation. Please respond to the clarification below the line at the bottom and electronically sign. The CDI & [facility] Coding staff will review the response and follow-up if needed. Please note: Queries are made part of the Legal Health Record. If you have any questions, please contact the author of this message via ITS. Dear Promise Jimenez MD., CHF is documented in 06/26 progress note as "she underwent chest x-ray yesterday that did show minimal thyromegaly and congestive heart failure, we will Hep-Lock her IV, we'll give the patient 1 dose of Lasix 20 mg IV push 1, we'll continue to monitor the patient very closely hopefully keep her in the hospital for another 24 hours would be better for her". History/Risk Factors:Hyponatremia, Incisional hernia, pleural effusion Clinical Indicators: cardiomegaly, pleural effusion. VS/Pulse OX:Pulse Ox 99 06/25/20 23:00 Echocardiogram Results: NA Chest X Ray:Borderline cardiomegaly, pulmonary vascular congestion, and small right pleural effusion.Findings may represent CHF. Treatment: IV LASIX. 06/27 Progress note "Mild fluid overload with right-sided pleural effusion and cardiomegaly.Discontinue IV fluid, resuscitation on her Dyazide, the patient Lasix 20 mg IV push 1, keep the patient the hospital for another 24 hours". In your professional opinion, can you please clarify the acuity and type of CHF if known? Systolic Heart Failure: Acute Chronic Acute on Chronic Diastolic Heart Failure: Acute Chronic Acute on Chronic Systolic & Diastolic Heart Failure: Acute Chronic Acute on Chronic Heart Failure Unable to Determine Other, please specify Acute diastolic heart failure MTDD
== END 2020-06-27 15:50 | disposition home or self-care (01) | DRG 353 ==
LOC: EC 11:58 → 4SSUR 17:53 → 6PED 18:08
PROVIDERS: ADMIT Surgery; ATTEND Surgery
PROC: 0WUF0JZ Supplement Abdominal Wall with Synthetic Substitute, Open Approach (ICD-10-PCS; principal; 2020-06-23 18:25)
DX: K43.0 Incisional hernia with obstruction, without gangrene (principal); I50.31 Acute diastolic (congestive) heart failure; E87.1 Hypo-osmolality and hyponatremia; N39.0 Urinary tract infection, site not specified; J98.11 Atelectasis; E86.1 Hypovolemia; E78.5 Hyperlipidemia, unspecified; E66.9 Obesity, unspecified; E87.6 Hypokalemia; K64.9 Unspecified hemorrhoids; I11.0 Hypertensive heart disease with heart failure; K76.0 Fatty (change of) liver, not elsewhere classified; R16.0 Hepatomegaly, not elsewhere classified; E87.70 Fluid overload, unspecified; B95.2 Enterococcus as the cause of diseases classified elsewhere; Z90.49 Acquired absence of other specified parts of digestive tract; Z79.899 Other long term (current) drug therapy; Z91.040 Latex allergy status; Z91.09 Other allergy status, other than to drugs and biological substances; Z98.890 Other specified postprocedural states; Z68.39 Body mass index [BMI] 39.0-39.9, adult; Z82.49 Family history of ischemic heart disease and other diseases of the circulatory system; Z82.41 Family history of sudden cardiac death
CPT/HCPCS: 36415; 71045; 74176; 80048; 80053; 81001; 83605; 83690; 83735; 84484; 85025; 87077; 87086; 87186; 88302; 93005; 96365; 96366; 99285

== ENCOUNTER → 2020-07-21 | Outpatient (CLI) | payer MEDICARE ==
--- NOTE | 2020-07-21 16:51 | BD ---
EXAMINATION TYPE: Axial Bone Density DATE OF EXAM: 07/21/2020 COMPARISON: NONE CLINICAL HISTORY: 64-year-old female postmenopausal screening Height: 62 IN Weight: 214 LBS RISK FACTORS HISTORY OF: History of Wrist Fracture: LEFT WRIST When: APPROX 49 Active: MODERATE Postmenopausal woman: AGE 55 MEDICATIONS: Additional Medications: MULTI VIT, BIOTIN, ATENOLOL, HCTZ EXAM MEASUREMENTS: Bone mineral densitometry was performed using the [employer] System. Bone mineral density as measured about the Lumbar spine is: ----- L1-L4(G/cm2): 1.137 T Score Values are as follows: ----- L2: -0.9 ----- L3: -0.3 ----- L4: -0.1 ----- L1-L4: -0.4 Bone mineral density BASELINE Bone mineral density about the R hip (g/cm2): 0.782 Bone mineral density about the L hip (g/cm2): 0.751 T Score values are as follows: -----R Neck: -1.8 -----L Neck: -2.1 -----R Total: -1.0 -----L Total: -0.6 Bone mineral density BASELINE IMPRESSION: Osteopenia (T Score between -2.5 and -1). There is slightly increased risk of fracture and the patient may be considered for treatment. Re-Screen 2-5 years. NOTE: T-SCORE=SD OF THE YOUNG ADULT MEAN.
== END | disposition home or self-care (01) ==
LOC: RADBDWWP 10:41
PROVIDERS: ATTEND Internal Medicine
DX: M85.80 Other specified disorders of bone density and structure, unspecified site (principal); M81.0 Age-related osteoporosis without current pathological fracture
CPT/HCPCS: 77080

== ENCOUNTER → 2020-09-27 | Outpatient (CLI) | payer MEDICARE ==
--- NOTE | 2020-09-27 14:48 | MM ---
Reason for exam: additional evaluation requested from prior study. Last mammogram was performed 2 years and 1 month ago. History: Patient is postmenopausal and is nulliparous. Family history of breast cancer in grandmother at age 36. Benign MG stereo VAD BX RT of the right breast, August 28, 2017. Excisional biopsy of the right breast. Took hormonal contraceptives for 10 years beginning at age 19. Physical Findings: Nurse did not find any significant physical abnormalities on exam. MG 3D Diag Mammo W/Cad DEBORA Bilateral CC and MLO view(s) were taken. Prior study comparison: August 21, 2018, bilateral MG screening mammo w CAD. August 09, 2017, bilateral MG screening mammo w CAD. The breast tissue is heterogeneously dense. This may lower the sensitivity of mammography. Finding #1: Architectural distortion in the right breast consistent with known excisional changes. Finding #2: There are typically benign round calcifications in both breasts. Previous mammotome biopsy in the right breast. There is no discrete abnormality. These results were verbally communicated with the patient and result sheet given to the patient on 09/27/20. ASSESSMENT: Benign, BI-RAD 2 RECOMMENDATION: Routine screening mammogram of both breasts in 1 year.
== END | disposition home or self-care (01) ==
LOC: RADMAMWWP 13:35
PROVIDERS: ATTEND Internal Medicine
DX: R92.8 Other abnormal and inconclusive findings on diagnostic imaging of breast (principal)
CPT/HCPCS: 77066; G0279; 77062

== ENCOUNTER → 2020-11-23 | Outpatient (CLI) | payer MEDICARE ==
--- NOTE | 2020-11-23 09:35 | US ---
EXAMINATION TYPE: US liver DATE OF EXAM: 11/23/2020 COMPARISON: NONE CLINICAL HISTORY: Elevated liver enzymes R94.5. abn labs, no symptoms EXAM MEASUREMENTS: Liver Length: 16.6 cm Gallbladder Wall: 0.2 cm CBD: 0.4 cm Right Kidney: 11.4 x 4.8 x 5.0 cm Pancreas: not seen due to bowel gas Liver: very difficult to penetrate Gallbladder: single 1.1cm stone seen, mobile Evidence for sonographic Castillo's sign: no CBD: wnl Right Kidney: wnl IMPRESSION: 1. Hepatic steatosis. 2. cholelithiasis without wall thickening.
== END | disposition home or self-care (01) ==
LOC: RADUSWWP 08:35
PROVIDERS: ATTEND Internal Medicine
DX: K76.0 Fatty (change of) liver, not elsewhere classified (principal); K80.20 Calculus of gallbladder without cholecystitis without obstruction
CPT/HCPCS: 76705

== ENCOUNTER → 2020-12-12 | Outpatient (CLI) | payer MEDICARE ==
--- NOTE | 2020-12-12 09:37 | NM ---
EXAMINATION TYPE: NM hepatobiliary w EF DATE OF EXAM: 12/12/2020 COMPARISON: Ultrasound liver 11/23/2020 HISTORY: Calculus of gallbladder TECHNIQUE: After the intravenous administration of 4.9 mCi Tc 99m Mebrofenin hepatobiliary scintigrap hy is performed. Immediate images post injection. FINDINGS: There is satisfactory initial accumulation of tracer by the liver. The gallbladder is visualized wit hin 10 minutes. The small bowel activity is noted within 10 minutes. At one hour 8 ounces of oral e nsure plus is given to mimic CCK and gallbladder ejection fraction is calculated at 89 %, above the u pper limit of the normal range. Therefore there is no scintigraphic evidence of cystic or common shar e duct obstruction to suggest acute cholecystitis or gallbladder dyskinesia. IMPRESSION: No cystic duct obstruction. Findings may be indicative of hyper dynamic gallbladder.
== END | disposition home or self-care (01) ==
LOC: RADNMMAIN 06:45
PROVIDERS: ATTEND Internal Medicine
DX: K80.20 Calculus of gallbladder without cholecystitis without obstruction (principal); Z91.040 Latex allergy status; Z91.048 Other nonmedicinal substance allergy status
CPT/HCPCS: 78226; A9537

== ENCOUNTER → 2022-03-13 | Outpatient (CLI) | payer MEDICARE ==
[2022-03-13 14:34] LABS: T4, Free (Free Thyroxine) 1.18 ng/dL (0.800-1.800)
== END | disposition home or self-care (01) ==
LOC: LABWHC1 08:57
PROVIDERS: ATTEND Internal Medicine
DX: E03.9 Hypothyroidism, unspecified (principal)
CPT/HCPCS: 36415; 84439; 84443

== ENCOUNTER → 2022-08-17 | Outpatient (CLI) | payer MEDICARE ==
--- NOTE | 2022-08-20 11:32 | MM ---
Reason for Exam: Screening (asymptomatic). Last mammogram was performed 1 year(s) and 10 month(s) ago. Patient History: Menarche at age 11. Patient has no children. Postmenopausal. Hormonal Contraceptives for 10 years from age 19 until age 29. Excisional Biopsy on the Right side. 08/28/2017, Benign Core Biopsy on the right side. Maternal grandmother had breast cancer, age 36. Risk Values: Ainsley 5 year model risk: 2.8%. NCI Lifetime model risk: 9.5%. Prior Study Comparison: 08/21/2018 Bilateral Screening Mammogram, [facility]. 09/04/2018 Left Diagnostic Mammogram, [facility]. 09/27/2020 Bilateral Diagnostic Mammogram, [facility]. Tissue Density: The breast tissue is heterogeneously dense. This may lower the sensitivity of mammography. Findings: Analyzed By CAD. Mammotome biopsy clip in the right breast is redemonstrated. Stable distortion at this level again seen. Benign-appearing vascular calcification in the left breast with occasional scattered and loosely grouped benign-appearing round calcifications in the right breast are redemonstrated. Benign-appearing bilateral axillary lymph nodes are again seen. There is no suspicious new group of microcalcifications or new suspicious mass in either breast. Overall Assessment: Benign, BI-RAD 2 Management: Screening Mammogram of both breasts in 1 year. A clinical breast exam by your physician is recommended on an annual basis and results should be correlated with mammographic findings. Electronically signed and approved by: Rajeev Walters M.D.
== END | disposition home or self-care (01) ==
LOC: RADMAMWWP 09:16
PROVIDERS: ATTEND Internal Medicine
DX: Z12.31 Encounter for screening mammogram for malignant neoplasm of breast (principal); Z78.0 Asymptomatic menopausal state; Z80.3 Family history of malignant neoplasm of breast; Z98.890 Other specified postprocedural states
CPT/HCPCS: 77063; 77067

== ENCOUNTER → 2022-09-13 | Outpatient (CLI) | payer MEDICARE ==
[~2022-09-13] MED LIST changes: -HYDROmorphone 0.5 MG/0.5 ML SYRINGE IVP ONE; +REGADENOSON 0.4 MG/5 ML SYRINGE IV PRN
--- NOTE | 2022-09-13 10:19 | CA ---
Lexiscan Nuclear Stress Test Report Name: Waleska Rendon Exam Date: 09/13/2022 09:27 Exam Location: [facility] Ht (in): 63 Wt (lb): 195 BSA: 1.91 Ordering Phys: Promise Juarez MD Referring Phys: PROMISE JUAREZ,, Technologist: Yash Duncan Age: 66 Gender: F : 1955 Procedure CPT: Indications: I25.84 CORONARY ATHEROSCLEROSIS ICD-10 Codes: Patient History: Medications: HCTZ, Levothyroxine, Atenolol, Atorvastatin, Biotin, B-Complex, CoQ10, Multivitamin Meds past 24 hrs: Pretest Chest Pain: STRESS TEST Lexiscan Protocol Exercise Duration (min:sec): 02:[address] Depressions (mm): Angina Score: Watkins Score: Resting HR (bpm): 59 Peak HR (bpm): 85 Resting BP (mmHg): 125 / 72 Peak BP (mmHg): 124 / 66 MPHR: 153 Target HR: 130 % MPHR: 56 METS: 1.0 Total Dose: Peak Dose: Atropine: Double Product: 09129 BP Response: Stress Termination: Protocol Complete Stress Symptoms: No Symptoms Stress Summary: ECG ANALYSIS Resting ECG: Normal sinus rhythm normal axis normal intervals Stress ECG: Patient was given intravenous Lexiscan as a protocol did not have chest pain or diagnostic ST segment depression CONCLUSIONS Negative stress test by EKG criteria Cardiolite portion of the stress test will be reported separately Dr. Fortino Hernández MD (Electronically Signed) Final Date: 13 September 2022 10:18
--- NOTE | 2022-09-13 15:22 | NM ---
EXAMINATION TYPE: NM stress lexiscan cardiolite DATE OF EXAM: 09/13/2022 COMPARISON: NONE HISTORY: I25.84 CORONARY ATHEROSCLEROSIS TECHNIQUE: After the intravenous administration of 9.6 mCi Tc 99m Sestamibi - Cardiolite resting SPE CT images acquired 45 minutes post injection. The patient received 0.4mg Lexiscan, 25.5 mCi Tc 99m Sestamibi - Stress images obtained [address] injection FINDINGS: Review of stress and rest SPECT images demonstrates small area of reversible perfusion abnormality in ferior wall which may reflect stress-induced ischemia. Correlate clinically. Gated analysis shows nor mal wall motion with an estimated left ventricular ejection fraction of 61 %. IMPRESSION: Inferior wall reversible ischemia difficult to exclude.
== END | disposition home or self-care (01) ==
LOC: RADNMMAIN 07:49
PROVIDERS: ATTEND Internal Medicine
DX: I25.10 Atherosclerotic heart disease of native coronary artery without angina pectoris (principal)
CPT/HCPCS: 93017; 78452; A9500; J2785

== ENCOUNTER → 2023-08-20 | Outpatient (CLI) | payer MEDICARE ==
--- NOTE | 2023-08-21 10:30 | MM ---
Reason for Exam: Screening (asymptomatic). Last mammogram was performed 1 year(s) and 1 month(s) ago. Patient History: Menarche at age 11. Patient has no children. Postmenopausal. Hormonal Contraceptives for 10 years from age 19 until age 29. Excisional Biopsy on the Right side. 08/28/2017, Benign Core Biopsy on the right side. Maternal grandmother had breast cancer, age 36. Risk Values: Ainsley 5 year model risk: 2.8%. NCI Lifetime model risk: 9.1%. Prior Study Comparison: 09/04/2018 Left Diagnostic Mammogram, [facility]. 09/27/2020 Bilateral Diagnostic Mammogram, [facility]. 08/17/2022 Bilateral MG 3D screening mammo w/cad, [facility]. Tissue Density: The breast tissue is heterogeneously dense. This may lower the sensitivity of mammography. Findings: Analyzed By CAD. Pattern appears symmetrical and stable. There is some stable distortion in the mid craniocaudal projection 12:00 position. Core markers within the right breast. Scattered punctate calcifications are adjacent. No suspicious groups of microcalcifications, spiculated or lobular masses, architectural distortion or other secondary signs of malignancy are mammographically apparent. Overall Assessment: Benign, BI-RAD 2 Management: Screening Mammogram of both breasts in 1 year. A negative mammogram report should not preclude additional follow up of suspicious palpable abnormalities. Patient should continue monthly self breast exam. A clinical breast exam by your physician is recommended on an annual basis and results should be correlated with mammographic findings. Electronically signed and approved by: Stuart Miller D.O. Radiologis
== END | disposition home or self-care (01) ==
LOC: RADMAMWWP 09:57
PROVIDERS: ATTEND Internal Medicine
DX: Z12.31 Encounter for screening mammogram for malignant neoplasm of breast (principal); Z13.1 Encounter for screening for diabetes mellitus; Z78.0 Asymptomatic menopausal state; Z80.3 Family history of malignant neoplasm of breast
CPT/HCPCS: 77063; 77067

== ENCOUNTER → 2024-07-28 | Outpatient (CLI) | payer MEDICARE ==
[2024-07-28 08:19] LABS: African American GFR (CKD) >90 (>60 ml/min/1.73 sqM); Blood Urea Nitrogen 17 mg/dL (7-17); Non-African American GFR(CKD) 82 (>60 ml/min/1.73 sqM)
--- NOTE | 2024-07-31 22:12 | CT ---
EXAMINATION TYPE: CT urogram wo/w con DATE OF EXAM: 07/28/2024 12:06 PM COMPARISON: None. CLINICAL INDICATION: Female, 68 years old with history of R31.29 microscopic hematuria, Microhematuri a, no symptoms, hx diverticulitis w/colon removal TECHNIQUE: Axial images were obtained from above the diaphragm to the pubic rami in the axial plane a t 5 mm thick sections. Reconstructed images are reviewed on the computer in the coronal plane. CONTRAST: 100 mL of Isovue 370. Study performed DLP: 3814 mGycm, Automated exposure control for dose reduction was used. FINDINGS: Urogram: Following contrast administration there is prompt uptake and excretion of contrast in the bi lateral kidneys. No hydronephrosis is evident. Delayed images and long delayed images were obtained. Three-D reconstructed images performed technologist on a separate computer workstation. Ureter is bryon ntified on sequential images appear normal. Bilateral ureteral jets are identified. No hydronephrosis or hydroureter evident. Limited CT sections are obtained the lung bases. The lung bases are clear. Small hiatal hernia CT ABDOMEN: Liver: Normal Spleen: Normal Pancreas: Normal Adrenal glands: The adrenal glands are normal. Gallbladder: Cholelithiasis Kidneys: No masses are evident. No hydronephrosis is present. No cysts are present. Delayed images were obtained through the kidneys, which remain unremarkable. Aorta: Vascular calcification is within the aorta. Inferior vena cava: Normal. CT PELVIS: Loops of bowel within the abdomen and pelvis are normal. Postsurgical changes within the distal smal l bowel. No obstruction evident. Postsurgical change within the distal sigmoid colon without obstruct ion. Some fecal debris is within the colon. There are loops of bowel which are incompletely distend ed or lack oral contrast limiting their evaluation. Appendix: Not visualized Urinary bladder: Decompressed Genitourinary structures: Uterus is unremarkable. Adnexa are normal. Osseous structures: No suspicious lytic or sclerotic lesions. IMPRESSION: 1. No suspicious filling defects or stenosis within the bilateral ureters 2. Cholelithiasis [facility], , 07/31/2024 10:10 PM
== END | disposition home or self-care (01) ==
LOC: RADCTMAIN 07:31
PROVIDERS: ATTEND Internal Medicine
DX: K80.20 Calculus of gallbladder without cholecystitis without obstruction (principal); R31.29 Other microscopic hematuria
CPT/HCPCS: 82565; 84520; 74178; 74400; Q9967

== ENCOUNTER → 2024-08-10 | Outpatient (CLI) | payer MEDICARE ==
--- NOTE | 2024-08-10 09:56 | US ---
EXAMINATION TYPE: US carotid duplex BILAT DATE OF EXAM: 08/10/2024 COMPARISON: NONE CLINICAL INDICATION: Female, 68 years old with history of I25.84 CORONARY ATHEROSCLEROSIS I65.23 STEN OSIS; Additional History: .... TECHNIQUE: Grayscale, color Doppler and spectral Doppler evaluation of the bilateral carotid systems and vertebral arteries. Indirect Doppler criteria was utilized. FINDINGS: EXAM MEASUREMENTS: RIGHT: Peak Systolic Velocity (PSV) cm/sec ----- Right CCA: 78.3 ----- Right ICA: 92.4 ----- Right ECA: 51.2 ICA/CCA ratio: 1.2 RIGHT: End Diastole cm/sec ----- Right CCA: 18.4 ----- Right ICA: 25.2 ----- Right ECA: 5.3 LEFT: Peak Systolic Velocity (PSV) cm/sec ----- Left CCA: 76.6 ----- Left ICA: 105 ----- Left ECA: 69.4 ICA/CCA ratio: 1.4 LEFT: End Diastole cm/sec ----- Left CCA: 23.1 ----- Left ICA: 27.9 ----- Left ECA: 14.3 VERTEBRALS (direction of flow): Right Vertebral: Antegrade Left Vertebral: Antegrade Rhythm: Normal BUTCHER ASSISTANT NOTES: No significant stenosis, plaque or elevated velocities seen bilaterally Color Doppler imaging shows patency with blood flow throughout the carotid artery. Spectral waveforms are within normal limits. IMPRESSION: Right: No hemodynamically significant stenosis. Left: No hemodynamically significant stenosis. Criteria for Assigning % of Stenosis / Diameter reduction (Estimation based on the indirect measurements of the internal carotid artery velocities (ICA PSV). 1. Normal (no stenosis)=ICA PSV < 125 cm/s: ratio < 2.0: ICA EDV<40 cm/s. 2. Less than 50% stenosis=ICA PSV < 125 cm/s: ratio < 2.0: ICA EDV<40 cm/s. 3. 50 to 69% stenosis=ICA PSV of 125 to 230 cm/s: ration 2.0 ? 4.0: ICA EDV 40-100 cm/s. 4. Greater than 70% stenosis to near occlusion= ICA PSV > 230 cm/s: ratio > 4.0: ICA EDV > 100 cm/s. 5. Near occlusion= ICA PSV velocities may be low or undetectable: variable ratio and ICA EDV. 6. Total occlusion=unable to detect flow. [facility], , 08/10/2024 9:54 AM
== END | disposition home or self-care (01) ==
LOC: RADUSWWP 06:55
PROVIDERS: ATTEND Internal Medicine
DX: I65.23 Occlusion and stenosis of bilateral carotid arteries (principal); I25.84 Coronary atherosclerosis due to calcified coronary lesion; I25.10 Atherosclerotic heart disease of native coronary artery without angina pectoris
CPT/HCPCS: 93880

== ENCOUNTER → 2024-08-17 | Outpatient (CLI) | payer MEDICARE ==
--- NOTE | 2024-08-18 08:04 | CA ---
Transthoracic Echo Report Name: Waleska Rendon Age: 68 Gender: F : 1955 Exam Date: 08/17/2024 15:14 Exam Location: [facility] Ht (in): 63 Wt (lb): 200 Ordering Physician: Promise Wood MD Attending/Referring Phys: Promise Wood MD Volleyball Assembler Yesika Welch RDCS Procedure CPT: Indications: I25.84 CORONARY ATHEROSCLEROSIS I65.23 STENOSIS Cardiac Hx: Technical Quality: Good Contrast 1: Total Dose (mL): Contrast 2: Total Dose (mL): MEASUREMENTS (Male / Female) Normal Values 2D ECHO LV Diastolic Diameter PLAX 4.3 cm 4.2 - 5.9 / 3.9 - 5.3 cm LV Systolic Diameter PLAX 2.7 cm IVS Diastolic Thickness 0.8 cm 0.6 - 1.0 / 0.6 - 0.9 cm LVPW Diastolic Thickness 1.0 cm 0.6 - 1.0 / 0.6 - 0.9 cm LV Relative Wall Thickness 0.4 LVOT Diameter 2.0 cm Aortic Root Diameter 3.0 cm LV Diastolic Volume MOD BP 94.6 cm??? 67 - 155 / 56 - 104 cm??? LV Systolic Volume MOD BP 39.6 cm??? 22 - 58 / 19 - 49 cm??? LV Ejection Fraction MOD BP 58.2 % >= 55 % LV Cardiac Index MOD BP 2202.0 cm???/min???m??? LV Diastolic Volume MOD 4C 105.5 cm??? LV Systolic Volume MOD 4C 41.7 cm??? LV Ejection Fraction MOD 4C 60.5 % LV Cardiac Index MOD 4C 2555.0 cm???/min???m??? LV Diastolic Length 4C 7.6 cm LV Systolic Length 4C 6.7 cm LV Diastolic Volume MOD 2C 84.5 cm??? LV Systolic Volume MOD 2C 34.9 cm??? LV Ejection Fraction MOD 2C 58.7 % LV Cardiac Index MOD 2C 1983.1 cm???/min???m??? LV Diastolic Length 2C 7.7 cm LV Systolic Length 2C 6.2 cm LA Volume 61.2 cm??? 18 - 58 / 22 - 52 cm??? LA Volume Index 29.9 cm???/m??? 16 - 28 cm???/m??? Ascending Aorta Diameter 3.5 cm DOPPLER AV Peak Velocity 177.8 cm/s AV Peak Gradient 12.7 mmHg AV Mean Velocity 123.7 cm/s AV Mean Gradient 6.9 mmHg AV Velocity Time Integral 38.2 cm LVOT Peak Velocity 125.2 cm/s LVOT Peak Gradient 6.3 mmHg LVOT Velocity Time Integral 26.0 cm LVOT Stroke Volume 84.7 cm??? LVOT Stroke Volume Index 43.8 ml/m??? LVOT Cardiac Index 3388.9 cm???/min???m??? AV Area Cont Eq vti 2.2 cm??? AV Area Cont Eq pk 2.3 cm??? MV Area PHT 2.9 cm??? Mitral E Point Velocity 47.3 cm/s Mitral A Point Velocity 92.5 cm/s Mitral E to A Ratio 0.5 MV Deceleration Time 259.7 ms PV Peak Velocity 83.5 cm/s PV Peak Gradient 2.8 mmHg FINDINGS Left Ventricle Left ventricular ejection fraction is estimated at 55-60 %. Mildly increased posterior wall thickness. Left ventricular cavity size normal. No obvious regional wall motion abnormalities. Right Ventricle Normal right ventricular size and function. Unable to estimate the right ventricular systolic pressure. Right Atrium Normal right atrial size. Left Atrium Mildly increased left atrial volume. Mitral Valve Structurally normal mitral valve. No evidence for mitral valve prolapse. No mitral stenosis. Trace mitral regurgitation. Aortic Valve Trileaflet aortic valve. No aortic valve stenosis or regurgitation. Tricuspid Valve Structurally normal tricuspid valve. No tricuspid stenosis. Trace tricuspid regurgitation. Pulmonic Valve Pulmonic valve not well visualized. No pulmonic stenosis. No pulmonic regurgitation. Pericardium No pericardial effusion. Aorta Normal size aortic root and proximal ascending aorta. CONCLUSIONS Normal biventricular dimension and systolic function Overall normal intracardiac valves No pericardial effusion Normal aortic root and proximal ascending aorta Previewed by: Dr. Juan Carlos Dumont MD (Electronically Signed) Final Date: 18 August 2024 08:04
== END | disposition home or self-care (01) ==
LOC: RADECHMAIN 15:08
PROVIDERS: ATTEND Internal Medicine
DX: I25.84 Coronary atherosclerosis due to calcified coronary lesion (principal); I25.10 Atherosclerotic heart disease of native coronary artery without angina pectoris
CPT/HCPCS: 93306

== ENCOUNTER → 2024-11-11 | Outpatient (CLI) | payer MEDICARE ==
--- NOTE | 2024-11-11 10:13 | MM ---
Reason for Exam: Screening (asymptomatic). Last mammogram was performed 1 year(s) and 2 month(s) ago. Patient History: Menarche at age 11. Patient has no children. Postmenopausal. Hormonal Contraceptives for 10 years from age 19 until age 29. Excisional Biopsy on the Right side. 08/28/2017, Benign Core Biopsy on the right side. Maternal grandmother had breast cancer, age 36. Risk Values: Ainsley 5 year model risk: 2.9%. NCI Lifetime model risk: 8.3%. Prior Study Comparison: 08/21/2017 Right Diagnostic Mammogram, [facility]. 02/27/2018 Right Diagnostic Mammogram, [facility]. 08/21/2018 Bilateral Screening Mammogram, [facility]. 09/04/2018 Left Diagnostic Mammogram, [facility]. 09/27/2020 Bilateral Diagnostic Mammogram, [facility]. 08/17/2022 Bilateral MG 3D screening mammo w/cad, [facility]. 08/20/2023 Bilateral MG 3D screening mammo w/cad, [facility]. Tissue Density: The breasts are heterogeneously dense, which may obscure small masses. Findings: Analyzed By CAD. There is no suspicious group of microcalcifications or new suspicious mass in either breast. Surgical clips in the right breast are noted. Benign appearing calcifications. A prior biopsy right breast. Subcentimeter chronic nodularity inner margin left breast stable. Overall Assessment: Benign, BI-RAD 2 Management: Screening Mammogram of both breasts in 1 year. . Patient should continue monthly self-breast exams. A clinical breast exam by your physician is recommended on an annual basis. This exam should not preclude additional follow-up of suspicious palpable abnormalities. Note on Ainsley scores and lifetime risk: 1. A Ainsley score greater than 3% is considered moderate risk. If this is the case, consider specialist referral to assess eligibility for a risk reducing agent. 2. If overall lifetime risk for the development of breast cancer is 20% or higher, the patient may qualify for future screening with alternating mammogram and breast MRI. [facility], , 11/11/2024 10:11 AM. Electronically signed and approved by: Luis Willis M.D. Radiologis
== END | disposition home or self-care (01) ==
LOC: RADMAMWWP 08:35
PROVIDERS: ATTEND Internal Medicine
DX: Z12.31 Encounter for screening mammogram for malignant neoplasm of breast (principal); R92.333 Mammographic heterogeneous density, bilateral breasts; Z78.0 Asymptomatic menopausal state; Z80.3 Family history of malignant neoplasm of breast; Z92.0 Personal history of contraception
CPT/HCPCS: 77063; 77067